=== PATIENT | female | born 1940 | race Caucasian/White ===

== ENCOUNTER 2016-12-28 12:17 | Inpatient (IN) | payer MEDICARE, OTHER ==
[~2016-12-28] VITALS: Ht 165.1 cm; Wt 121.8 kg
[~2016-12-28 12:17] MED LIST: ASPI-664 PO; ATOR40TA21 PO; CARV6.2579 PO; FENO135C3 PO; GLIM4TAB55 PO; OLME1TAB12 PO; SITA1TAB7 PO
[2016-12-28] MEDS ORDERED: SOD CHLORIDE 0.9% 500 ML IV STA (13:06)
[2016-12-28] MEDS ORDERED: ONDANSETRON 4 MG INJ IV STA (13:06)
[2016-12-28] MEDS ORDERED: MECLIZINE 12.5 MG TAB PO ONE (13:30)
[2016-12-28 13:39] LABS: ADD SCAN DIFF NO
[2016-12-28 13:46] LABS: BASOPHILS % 0.2 % (0.0-2.0); EOSINOPHILS % 0.1 % (0.0-7.0); HEMATOCRIT 36.1 % (37.0-47.0); HEMOGLOBIN 11.9 g/dl (12.0-16.0); LYMPHOCYTES # 0.6 10^3/ul (0.8-2.9); LYMPHOCYTES % 4.2 % (15.0-51.0); MEAN PLATELET VOLUME 11.4 fl (7.4-10.4); MONOCYTE # 0.5 10^3/ul (0.3-0.9); MONOCYTES % 3.4 % (0.0-11.0); NEUTROPHIL # 13.5 10^3/ul (1.6-7.5); NEUTROPHILS % 91.4 % (39.0-77.0); PLATELET COUNT 204 10^3/UL (140-415); RED CELL DISTRIBUTION WIDTH 13.2 % (11.5-14.5); WHITE BLOOD COUNT 14.8 10^3/ul (4.8-10.8)
[2016-12-28 13:57] LABS: ALBUMIN 4.2 g/dl (3.3-4.9)
[2016-12-28 13:58] LABS: POTASSIUM 4.5 mmol/L (3.5-5.1)
[2016-12-28 14:00] LABS: ALBUMIN/GLOBULIN RATIO 1.44; BILIRUBIN,INDIRECT 0.7 mg/dl (0-1.1); BILIRUBIN,TOTAL 0.7 mg/dl (0.2-1.3); CREATININE 1.19 mg/dl (0.44-1.00); TOTAL PROTEIN 7.1 g/dl (6.1-8.1)
[2016-12-28 14:01] LABS: CALCIUM 9.6 mg/dl (8.4-10.2)
--- NOTE | 2016-12-28 14:01 | RADRPT ---
PROCEDURE: XR Chest. CLINICAL INDICATION: Chest pain TECHNIQUE: Chest AP portable. COMPARISON: 04/03/2015 FINDINGS: The mediastinal structures are unremarkable. There is calcification of the thoracic aorta (consiste nt with atherosclerosis). There is mild cardiomegaly. There is mild pulmonary venous hypertension. No consolidation is identified. The pleural spaces are unremarkable. There are senescent changes of the axial skeleton. IMPRESSION: Mild cardiomegaly. Mild pulmonary venous hypertension. RPTAT: HGDB .Mario Garrido MD, Date Time Electronically viewed and signed by .Mario Garrido MD, on 12/28/2016 14:01 .B/
[2016-12-28 14:11] LABS: TROPONIN-I 0.026 ng/ml (0.00-0.12)
--- NOTE | 2016-12-28 14:29 | RADRPT ---
PROCEDURE: CT Brain without contrast. CLINICAL INDICATION: Vertigo TECHNIQUE: A multiplanar CT of the brain was performed on a CT scanner utilizing axial imaging fro m the skull base through the vertex without IV contrast. The CTDIvol is and 50.41 mGy and the DLP i s 715.55 mGycm. One or more of the following dose reduction techniques were utilized: Automated ex posure control, adjustment of the mA and/or kV according to patient size, use of iterative reconstru ction technique. COMPARISON: None FINDINGS: No evidence of intracranial hemorrhage or abnormal extra-axial fluid collection. Several low attenua tion foci in the deep white matter most compatible with sequelae of chronic microvascular ischemic i njury. The brain parenchyma is otherwise normal attenuation morphology with preservation of abraham white diff erentiation and age appropriate size of the ventricles and subarachnoid spaces. The posterior fossa contents, brainstem, craniocervical junction, orbits, pituitary axis, paranasal sinuses, mastoid air cells, and calvarium are unremarkable. IMPRESSION: 1. No intracranial hemorrhage or acute intracranial abnormality. 2. Early ischemic injury may be occult to CT imaging and diffusion weighted MRI may be considered as clinically warranted. RPTAT:AAJJ Physician Kristal Date Time Electronically viewed and signed by Physician Kristal on 12/28/2016 14:28 OLINDA/
[2016-12-28] MEDS ORDERED: SOD CHLORIDE 0.9% 1,000 ML IV SCH (15:58)
[2016-12-28] MEDS ORDERED: ONDANSETRON 4 MG INJ IV PRN (16:00)
[2016-12-28] MEDS ORDERED: ACETAMINOPHEN 325 MG TAB PO PRN (16:00)
--- NOTE | 2016-12-28 16:03 | ERA ---
ER Documentation Chief Complaint Date/Time DATE: 12/28/16 TIME: 15:59 Chief Complaint dizziness with n/v starting this morning at 0800 HPI This is a 76-year-old female complains of sudden onset of vertigo this morning. She says that when she turns her head she gets severe spinning of the room that induces nausea vomiting. She has no headache no fever no focal neurological complaints such as numbness or weakness speech change or visual change. No chest pain shortness of breath no abdominal pain. No diarrhea. No history of vertigo in the past. The patient does not have a history of A. fib. She says if she remains still the spinning sensation gets better ROS All systems reviewed and are negative except as per history of present illness. Medications Home Meds Reported Medications Aspirin* (Aspirin* (EC)) 81 Mg Tablet.dr, 81 MG PO DAILY, TAB 04/03/15 Glimepiride* (Amaryl*) 4 Mg Tablet, 4 MG PO DAILY 02/22/12 Sitagliptin Phos-Metformin Hcl (Janumet) 1 Tab Tablet, 50 MG PO BID 02/22/12 Olmesartan/Hydrochlorothiazide (Benicar Hct 40-12.5 Mg Tablet) 1 Udtab Tablet, 1 TAB PO DAILY 02/22/12 Carvedilol* (Carvedilol*) 6.25 Mg Tablet, 6.25 MG PO BID 02/22/12 Fenofibric Acid (Choline) (Trilipix) 135 Mg Capsule.dr, 135 MG PO DAILY 02/22/12 Atorvastatin (Lipitor) 40 Mg Tablet, 40 MG PO DAILY 02/22/12 Allergies Allergies: Coded Allergies: No Known Allergy (Unverified , 12/28/16) PMhx/Soc Medical and Surgical Hx: pt denies Surgical Hx History of Surgery: No Anesthesia Reaction: No Hx Neurological Disorder: No Hx Respiratory Disorders: No Hx Cardiac Disorders: Yes (HTN) Hx Psychiatric Problems: No Hx Miscellaneous Medical Probl: Yes (DJD,OBESITY,HTN,HERNIA REPAIR, CHOLECYSTECTOMY,DYSLIPIDEMIA) Hx Alcohol Use: No Hx Substance Use: No Hx Tobacco Use: No Smoking Status: Never smoker FmHx Family History: No coronary disease Physical Exam Vitals Vital Signs Date Time Temp Pulse Resp B/P Pulse Ox O2 Delivery O2 Flow Rate FiO2 12/28/16 12:25 99.2 114 16 124/66 100 Physical Exam Const: Well-developed, well-nourished Head: Atraumatic, normocephalic Eyes: Normal Conjunctiva, PERRLA, EOMI, normal sclera, no nystagmus ENT: Normal External Ears, Nose and Mouth, moist mucus membranes. Neck: Full range of motion. No meningismus, no lymphadenopathy. Resp: Clear to auscultation bilaterally, no wheezing, rhonchi, rales Cardio: Irregular irregular rhythm heart rate 95-115, no murmurs, S1 S2 present Abd: Soft, non tender x 4, non distended. Normal bowel sounds, no guarding or rebound, no pulsitile abdominal masses or bruits Skin: No petechiae or rashes, no ecchymosis , no maculopapular rash Back: No midline or flank tenderness Ext: No cyanosis, or edema, FROM x 4, normal inspection, neurovascularly intact x 4 Neur: Awake and alert, STR 5/5 x 4, sensation intact x 4, no focal findings, cerebellum intact, upon attempting Hallpike the patient gets severe vertigo and cannot tolerate the maneuver., I do not appreciate nystagmus Psych: Normal Mood and Affect Result Diagram: 12/28/16 1320 12/28/16 1320 Results 24 hrs Laboratory Tests Test 12/28/16 13:20 Alanine Aminotransferase (ALT/SGPT) 22IU/L Albumin 4.2g/dl Albumin/Globulin Ratio 1.44 Alkaline Phosphatase 106IU/L Anion Gap 18 Aspartate Amino Transf (AST/SGOT) 20IU/L Basophils # 0.010^3/ul Basophils % 0.2% Blood Urea Nitrogen 29mg/dl Calcium Level 9.6mg/dl Carbon Dioxide Level 27mmol/L Chloride Level 101mmol/L Creatinine 1.19mg/dl Direct Bilirubin 0.00mg/dl Eosinophils # 0.010^3/ul Eosinophils % 0.1% Globulin 2.90g/dl Glucose Level 199mg/dl Hematocrit 36.1% Hemoglobin 11.9g/dl Indirect Bilirubin 0.7mg/dl Lymphocytes # 0.610^3/ul Lymphocytes % 4.2% Mean Corpuscular Hemoglobin 29.0pg Mean Corpuscular Hemoglobin Concent 33.0g/dl Mean Corpuscular Volume 88.0fl Mean Platelet Volume 11.4fl Monocytes # 0.510^3/ul Monocytes % 3.4% Neutrophils # 13.510^3/ul Neutrophils % 91.4% Nucleated Red Blood Cells # 0.010^3/ul Nucleated Red Blood Cells % 0.0/100WBC Platelet Count 37637^3/UL Potassium Level 4.5mmol/L Red Blood Count 4.1010^6/ul Red Cell Distribution Width 13.2% Sodium Level 141mmol/L Total Bilirubin 0.7mg/dl Total Protein 7.1g/dl Troponin I 0.026ng/ml White Blood Count 14.810^3/ul Current Medications Medications (Trade) Dose Ordered Sig/Rodri Route PRN Reason Start Time Stop Time Status Last Admin Dose Admin Sodium Chloride (NS) 500 ml @ 500 mls/hr Q1H STAT IV 12/28/16 13:06 12/28/16 14:05 DC 12/28/16 13:28 Ondansetron HCl (Zofran Inj) 4 mg ONCE STAT IV 12/28/16 13:06 12/28/16 13:08 DC 12/28/16 13:27 Meclizine HCl (Antivert) 25 mg ONCE ONCE PO 12/28/16 13:30 12/28/16 13:31 DC 12/28/16 13:27 Procedures/MDM PROCEDURE: CT Brain without contrast. CLINICAL INDICATION: Vertigo TECHNIQUE: A multiplanar CT of the brain was performed on a CT scanner utilizing axial imaging from the skull base through the vertex without IV contrast. The CTDIvol is and 50.41 mGy and the DLP is 715.55 mGycm. One or more of the following dose reduction techniques were utilized: Automated exposure control, adjustment of the mA and/or kV according to patient size, use of iterative reconstruction technique. COMPARISON: None FINDINGS: No evidence of intracranial hemorrhage or abnormal extra-axial fluid collection. Several low attenuation foci in the deep white matter most compatible with sequelae of chronic microvascular ischemic injury. The brain parenchyma is otherwise normal attenuation morphology with preservation of abraham white differentiation and age appropriate size of the ventricles and subarachnoid spaces. The posterior fossa contents, brainstem, craniocervical junction, orbits, pituitary axis, paranasal sinuses, mastoid air cells, and calvarium are unremarkable. IMPRESSION: 1. No intracranial hemorrhage or acute intracranial abnormality. 2. Early ischemic injury may be occult to CT imaging and diffusion weighted MRI may be considered as clinically warranted. RPTAT:AAJJ Physician Kristal Date Time Electronically viewed and signed by Physician Kristal on 12/28/2016 14:28 OLINDA/ CC: CHRISS HRAPER DO PROCEDURE: XR Chest. CLINICAL INDICATION: Chest pain TECHNIQUE: Chest AP portable. COMPARISON: 04/03/2015 FINDINGS: The mediastinal structures are unremarkable. There is calcification of the thoracic aorta (consistent with atherosclerosis). There is mild cardiomegaly. There is mild pulmonary venous hypertension. No consolidation is identified. The pleural spaces are unremarkable. There are senescent changes of the axial skeleton. IMPRESSION: Mild cardiomegaly. Mild pulmonary venous hypertension. RPTAT: HGDB .Mario Garrido MD, MD Date Time Electronically viewed and signed by .Mario Garrido MD, MD on 12/28/2016 14:01 .B/ CC: CHRISS HARPER DO EKG: Rate/Rhythm: Atrial fibrillation with rapid ventricular response, heart rate 105, left anterior fascicular block QRS, ST, QT: NORMAL [place], QRS, QT] Impression: Atrial fibrillation with RVR Patient has no evidence of stroke on CT scan nor does have any on physical exam. Will admit the patient for new onset A. fib. Patient is having some vertigo which is likely peripheral in nature will likely undergo MRI Departure Diagnosis: Primary Impression: Atrial fibrillation, new onset Additional Impression: Vertigo Condition: Stable CHRISS HARPER DO Dec 28, 2016 16:03
--- NOTE | 2016-12-28 18:55 | HP ---
Date/Time of Note Date/Time of Note DATE: 12/28/16 TIME: 18:28 Assessment/Plan VTE Prophylaxis VTE Prophylaxis Intervention: heparin Lines/Catheters IV Catheter Type (from Nrs): Saline Lock Assessment/Plan Assessment/Plan 76 yo F who presents with dizziness managed for 1. Acute onset Dizziness * r/o CVA 2. New Afib + Mild RVR 3. HTN: controlled 3. DM2 with fairly good control 5. Leukocytosis L: likely reactive * r/o occult infection 6. Dyslipidemia 7. Acute renal failure r/o CKD 8. Hx of LE DVT PLAN: Admit tele CVA r/o with MRI / Carotids / 2d Echo Cardio consult / ACS r/o / anticoagulation /BB / EVANS i when renal fxn stable UA / Serial labs / LE dopplers PROPHYLAXIS: PPI / Lovenox HPI/ROS Admit Date/Time Admit Date/Time 12/28/16 Hx of Present Illness This is a 76-year-old female complains of sudden onset of vertigo this morning. She says that when she turns her head she gets severe spinning of the room that induces nausea vomiting. She has no headache no fever no focal neurological complaints such as numbness or weakness speech change or visual change. No chest pain shortness of breath no abdominal pain. No diarrhea. No history of vertigo in the past. The patient does not have a history of A. fib. She says if she remains still the spinning sensation gets better ROS 12 point review if systems was done and pertinent findings are as noted. PMH/Family/Social Past Medical History * HTN * OA * HLD * Hx of LE DVT * ckd? * DM 2 * Obesity Past Surgical History * hernia repair * cholecystectomy Family History Significant Family History: no pertinent family hx Social History Alcohol Use: none Smoking Status: Never smoker Drug Use: none Exam/Review of Systems Vital Signs Vitals VS - Last 72 Hours, by Label Date Time Temp Pulse Resp B/P Pulse Ox O2 Delivery O2 Flow Rate FiO2 12/28/16 15:48 98.1 95 24 138/62 97 Room Air 12/28/16 12:25 99.2 114 16 124/66 100 Vital Signs Date Time Temp Pulse Resp B/P Pulse Ox O2 Delivery O2 Flow Rate FiO2 12/28/16 15:48 98.1 95 24 138/62 97 Room Air Exam Constitutional: alert, oriented, No distress Psych: anxiety Head: atraumatic, normocephalic Eyes: PERRL, No icteric ENMT: mucosa pink and moist Neck: supple, No jvd Respiratory: clear to auscultation, diminished breath sounds Cardiovascular: irregular rhythm, No murmurs/extra sounds Gastrointestinal: bowel sounds, non-tender, soft Extremities: No edema Neurological: nl mental status, nl speech, No focal weakness Labs Result Diagram: 12/28/16 1320 12/28/16 1320 Medications Medications Current Medications Sodium Chloride (NS) 1,000 ml @ 80 mls/hr [id number] IV ; Start 12/28/16 at 15:58 ; Stop 12/29/16 at 04:27 Procedures Procedures Laboratory Tests Test 12/28/16 13:20 Alanine Aminotransferase (ALT/SGPT) 22IU/L Albumin 4.2g/dl Albumin/Globulin Ratio 1.44 Alkaline Phosphatase 106IU/L Anion Gap 18 Aspartate Amino Transf (AST/SGOT) 20IU/L Basophils # 0.010^3/ul Basophils % 0.2% Blood Urea Nitrogen 29mg/dl Calcium Level 9.6mg/dl Carbon Dioxide Level 27mmol/L Chloride Level 101mmol/L Creatinine 1.19mg/dl Direct Bilirubin 0.00mg/dl Eosinophils # 0.010^3/ul Eosinophils % 0.1% Globulin 2.90g/dl Glucose Level 199mg/dl Hematocrit 36.1% Hemoglobin 11.9g/dl Indirect Bilirubin 0.7mg/dl Lymphocytes # 0.610^3/ul Lymphocytes % 4.2% Mean Corpuscular Hemoglobin 29.0pg Mean Corpuscular Hemoglobin Concent 33.0g/dl Mean Corpuscular Volume 88.0fl Mean Platelet Volume 11.4fl Monocytes # 0.510^3/ul Monocytes % 3.4% Neutrophils # 13.510^3/ul Neutrophils % 91.4% Nucleated Red Blood Cells # 0.010^3/ul Nucleated Red Blood Cells % 0.0/100WBC Platelet Count 93518^3/UL Potassium Level 4.5mmol/L Red Blood Count 4.1010^6/ul Red Cell Distribution Width 13.2% Sodium Level 141mmol/L Total Bilirubin 0.7mg/dl Total Protein 7.1g/dl Troponin I 0.026ng/ml White Blood Count 14.810^3/ul ER INTERVENTIONS Medications (Trade) Dose Ordered Sig/Rodri Route PRN Reason Start Time Stop Time Status Last Admin Dose Admin Sodium Chloride (NS) 500 ml @ 500 mls/hr Q1H STAT IV 12/28/16 13:06 12/28/16 14:05 DC 12/28/16 13:28 500 MLS/HR Ondansetron HCl (Zofran Inj) 4 mg ONCE STAT IV 12/28/16 13:06 12/28/16 13:08 DC 12/28/16 13:27 4 MG Meclizine HCl 25 mg 25 mg ONCE ONCE PO 12/28/16 13:30 12/28/16 13:31 DC 12/28/16 13:27 25 MG Sodium Chloride (NS) 1,000 ml @ 80 mls/hr [id number] IV 12/28/16 15:58 12/29/16 04:27 Ondansetron HCl (Zofran Inj) 4 mg ER BRIDGE PRN IV NAUSEA AND/OR VOMITING 12/28/16 16:00 12/29/16 15:59 Acetaminophen (Tylenol Tab) 650 mg ER BRIDGE PRN PO MILD PAIN/FEVER 12/28/16 16:00 12/29/16 15:59 PROCEDURE: CT Brain without contrast. CLINICAL INDICATION: Vertigo TECHNIQUE: A multiplanar CT of the brain was performed on a CT scanner utilizing axial imaging from the skull base through the vertex without IV contrast. The CTDIvol is and 50.41 mGy and the DLP is 715.55 mGycm. One or more of the following dose reduction techniques were utilized: Automated exposure control, adjustment of the mA and/or kV according to patient size, use of iterative reconstruction technique. COMPARISON: None FINDINGS: No evidence of intracranial hemorrhage or abnormal extra-axial fluid collection. Several low attenuation foci in the deep white matter most compatible with sequelae of chronic microvascular ischemic injury. The brain parenchyma is otherwise normal attenuation morphology with preservation of abraham white differentiation and age appropriate size of the ventricles and subarachnoid spaces. The posterior fossa contents, brainstem, craniocervical junction, orbits, pituitary axis, paranasal sinuses, mastoid air cells, and calvarium are unremarkable. IMPRESSION: 1. No intracranial hemorrhage or acute intracranial abnormality. 2. Early ischemic injury may be occult to CT imaging and diffusion weighted MRI may be considered as clinically warranted. RPTAT:AAJJ Physician Kristal Date Time Electronically viewed and signed by Physician Kristal on 12/28/2016 14:28 PROCEDURE: XR Chest. CLINICAL INDICATION: Chest pain TECHNIQUE: Chest AP portable. COMPARISON: 04/03/2015 FINDINGS: The mediastinal structures are unremarkable. There is calcification of the thoracic aorta (consistent with atherosclerosis). There is mild cardiomegaly. There is mild pulmonary venous hypertension. No consolidation is identified. The pleural spaces are unremarkable. There are senescent changes of the axial skeleton. IMPRESSION: Mild cardiomegaly. Mild pulmonary venous hypertension. RPTAT: HGDB .Mario Garrido MD, Date Time Electronically viewed and signed by .Mario Garrido MD, MD on 12/28/2016 14:01 EKG: Rate/Rhythm: Atrial fibrillation with rapid ventricular response, heart rate 105, left anterior fascicular block QRS, ST, QT: NORMAL NC, QRS, QT] Impression: Atrial fibrillation with RVR JHOAN BARRETT Dec 28, 2016 18:41
[2016-12-28] MEDS ORDERED: GLUCOSE GEL 15 GRAM TUBE BUCCAL PRN (19:00)
[2016-12-28] MEDS ORDERED: DEXTROSE 50% 50 ML SYRINGE IV PRN ×2 (19:00)
[2016-12-28] MEDS ORDERED: GLUCOSE GEL 15 GRAM TUBE PO PRN ×2 (19:00)
[2016-12-28] MEDS ORDERED: GLUCAGON 1 MG INJ IM PRN (19:00)
--- NOTE | 2016-12-28 19:42 | RADRPT ---
PROCEDURE: US Lower extremity Venous. CLINICAL INDICATION: Pain and swelling TECHNIQUE: Multiple sonographic images of the bilateral lower extremity deep venous system was obt ained utilizing grayscale, color-flow, compressive sonography and doppler imaging with augmentation. The images were reviewed on a PACS workstation. COMPARISON: None. FINDINGS: There is normal compressibility and flow within the bilateral common femoral, deep femoral, superfic ial femoral and popliteal veins. Normal respiratory variation and augmentation is seen. There is normal color flow and compressibility of bilateral posterior tibial and peroneal veins IMPRESSION: No sonographic evidence for bilateral lower extremity deep venous thrombosis. RPTAT: HH .Ochoa Pinto MD, MD Date Time Electronically viewed and signed by .Ochoa Pinto MD, on 12/28/2016 19:42 .W/
[2016-12-28] MEDS: SOD CHLORIDE 0.9% 1,000 ML IV SCH (20:00)
[2016-12-28 20:20] VITALS: TEMP 102.3
[2016-12-28] MEDS: INSULIN ASPART [NOVOLOG] 3 ML PEN SC SCH (21:00)
[2016-12-28 21:18] VITALS: PULSE 92
[2016-12-28 22:14] VITALS: BP 138/58; PULSE 96; RESP 21; Ht 165.1 cm; Wt 121.8 kg
[2016-12-29] VITALS (14 sets, daily range): BP systolic 87–113; BP diastolic 42–60; PULSE 71–87; RESP 18–20
[2016-12-29 00:15] LABS: CK-MB 0.38 ng/ml (0.0-2.4)
[2016-12-29 00:36] LABS: TROPONIN-I 0.173 ng/ml (0.00-0.12)
[2016-12-29] MEDS: PANTOPRAZOLE (EC) 40 MG TAB PO SCH (05:38)
[2016-12-29] MEDS: SOD CHLORIDE 0.9% 1,000 ML IV SCH (08:11)
[2016-12-29 08:34] LABS: ADD SCAN DIFF NO
[2016-12-29 08:39] LABS: BASOPHILS % 0.1 % (0.0-2.0); HEMATOCRIT 31.2 % (37.0-47.0); HEMOGLOBIN 10.3 g/dl (12.0-16.0); LYMPHOCYTES # 1.1 10^3/ul (0.8-2.9); LYMPHOCYTES % 9.2 % (15.0-51.0); MEAN CORPUSCULAR VOLUME 87.9 fl (82.0-101.0); MEAN PLATELET VOLUME 11.4 fl (7.4-10.4); MONOCYTE # 0.5 10^3/ul (0.3-0.9); MONOCYTES % 3.9 % (0.0-11.0); NEUTROPHILS % 86.3 % (39.0-77.0); PLATELET COUNT 178 10^3/UL (140-415); RED BLOOD COUNT 3.55 10^6/ul (4.20-5.40); RED CELL DISTRIBUTION WIDTH 13.5 % (11.5-14.5); WHITE BLOOD COUNT 11.6 10^3/ul (4.8-10.8)
[2016-12-29 08:56] LABS: POTASSIUM 3.7 mmol/L (3.5-5.1)
[2016-12-29 08:58] LABS: CREATININE 1.14 mg/dl (0.44-1.00)
[2016-12-29 08:59] LABS: CALCIUM 8.6 mg/dl (8.4-10.2); MAGNESIUM 1.3 mg/dl (1.7-2.5); PHOSPHORUS 2.3 mg/dl (2.5-4.9)
[2016-12-29 09:00] LABS: CHOL/HDL RATIO 3.8 RATIO
[2016-12-29] MEDS ORDERED: ATORVASTATIN 40 MG TAB PO SCH (09:00)
[2016-12-29 09:08] LABS: CK-MB 0.33 ng/ml (0.0-2.4)
[2016-12-29 09:15] LABS: TROPONIN-I 0.146 ng/ml (0.00-0.12)
[2016-12-29] MEDS: ENOXAPARIN 40 MG/0.4 ML SYG SC SCH (09:21)
[2016-12-29] MEDS: ASPIRIN (EC) 81 MG TAB PO SCH (09:21)
[2016-12-29] MEDS: metFORMIN 500 MG TAB PO SCH ×2 (09:21→17:45)
[2016-12-29] MEDS: LINAGLIPTIN 5 MG TABLET PO SCH (09:22)
[2016-12-29 09:29] LABS: THYROID STIMULATING HORMONE 0.085 MIU/L (0.465-4.680)
[2016-12-29] MEDS: FENOFIBRATE 145 MG TAB PO SCH (09:30)
[2016-12-29] MEDS: INSULIN ASPART [NOVOLOG] 3 ML PEN SC SCH ×4 (10:30→21:43)
--- NOTE | 2016-12-29 11:01 | RADRPT ---
Echocardiogram Report Patient Name: CHIDI FRANCISCO Gender: Female Date: 1940 Study Date: 29-Dec-2016 Excavating Contractor: Jorge eRis [facility] Location: [id number] Ref. Physician: JHOAN BARRETT Quality: Technically Difficult Study Procedures: Transthoracic echocardiogram with complete 2D, M-Mode, and doppler examination. Indications: Atrial Fibrillation RVR. 2D/M Mode Doppler Measurement Value Normal Ranges Measurement Value Normal Ranges LVIDd 2D 5.4 3.5 - 5.6 cm AV Peak Paolo 1.7 m/sec LVIDs 2D 3.1 2.1 - 4.1 cm AV Peak PG 11.6 mmHg LVPWd 2D 1.2 0.6 - 1.1 cm LVOT Peak Paolo 1.3 m/sec IVSd 2D 1.1 0.6 - 1.1 cm LVOT Peak PG 7.3 mmHg AoR Diam 2D 3.0 2.0 - 3.7 cm MV E Peak Paolo 0.7 m/sec EDV 2D 139.3 cm3 MV A Peak Paolo 0.9 m/sec ESV 2D 30.9 cm3 MV E/A 0.8 LA Dimen 2D 3.7 2.3 - 4.0 cm MV Decel Time 140 msec MV Decel [place] 5 MV E/A 0.8 TR Peak Paolo 2.2 m/sec TR Peak PG 18.6 mmHg RVSP 22.0 mmHg Findings Left Ventricle: Normal left ventricular systolic function. Normal left ventricular cavity size. Normal left ventricular wall thickness. Ejection fraction is visually estimated at 65 %. Tissue Doppler/Mitral Doppler indices are consistent with impaired relaxation (Stage I diastolic dysfunction). Right Ventricle: Normal right ventricular size. Normal right ventricular systolic function. Left Atrium: The left atrium is normal in size. Right Atrium: The right atrium is normal in size. Mitral Valve: Mitral valve leaflets appear mildly thickened. Mild mitral annular calcification. Trace mitral regurgitation. Aortic Valve: No hemodynamically significant aortic stenosis by doppler. Aortic cusps appear mildly calcified. Trace to mild aortic valve regurgitation. Tricuspid Valve: Normal appearance of the tricuspid valve. Estimated peak PA systolic pressure 22 mmHg. There is trace tricuspid regurgitation. Pulmonic Valve: Normal pulmonic valve appearance. Pericardium: Normal pericardium with no significant pericardial effusion. Aorta: Normal aortic root. IVC: Normal size and normal respiratory collapse consistent with normal right atrial pressure. Conclusions 1.Normal left ventricular systolic function. Normal left ventricular cavity size. Normal left ventricular wall thickness. Ejection fraction is visually estimated at 65 %. Tissue Doppler/Mitral Doppler indices are consistent with impaired relaxation (Stage I diastolic dysfunction). 2.Mitral valve leaflets appear mildly thickened. Mild mitral annular calcification. Trace mitral regurgitation. 3.No hemodynamically significant aortic stenosis by doppler. Aortic cusps appear mildly calcified. Trace to mild aortic valve regurgitation. 4.Normal appearance of the tricuspid valve. Estimated peak PA systolic pressure 22 mmHg. There is trace tricuspid regurgitation. Electronically Signed By: Danilo Ward 29-Dec-2016 11:00:53 -0800 Patient Name: CHIDI FRANCISCO Study Date: 29-Dec-[id number]
--- NOTE | 2016-12-29 14:55 | PN ---
Date/Time of Note Date/Time of Note DATE: 12/29/16 TIME: 14:47 Assessment/Plan VTE Prophylaxis VTE Prophylaxis Intervention: LMWH Lines/Catheters IV Catheter Type (from Nrsg): Peripheral IV Assessment/Plan Assessment/Plan 1. Vertigo, likely peripheral, follow up with MRI, meclizine prn 2. Atrial fibrillation, paroxysmal, sinus now, follow up with cardiology 3. Fever with leukocytosis, ?source infection, UA, 4. HTN, controlled 5. DM2 with fairly good control 6. Dyslipidemia 7. Acute renal failure r/o CKD 8. Hx of LE DVT, check US Subjective 24 Hr Interval Summary Free Text/Dictation no dizziness today. No chest pain or shortness of breath Exam/Review of Systems Vital Signs Vitals Vital Signs Date Time Temp Pulse Resp B/P Pulse Ox O2 Delivery O2 Flow Rate FiO2 12/29/16 12:17 75 12/29/16 10:20 99.6 12/29/16 08:41 20 102/46 90 12/28/16 22:14 Room Air Intake and Output 12/28/16 12/28/16 12/29/16 15:00 23:00 07:00 Intake Total 600 ml Output Total 400 ml Balance 200 ml Exam Constitutional: alert, obese, oriented, well developed Psych: nl mood/affect, no complaints Head: atraumatic, normocephalic Eyes: EOMI, PERRL, nl conjunctiva, nl lids, nl sclera ENMT: nl external ears & nose, nl lips & teeth, nl nasal mucosa & septum Neck: non-tender, supple Respiratory: clear to auscultation, normal air movement, No congested cough, No crackles/rales, No diminished breath sounds, No intercostal retraction, No labored breathing, No other, No respirations, No tactile fremitus, No wheezing Cardiovascular: nl pulses, regular rate and rhythm, No S3, No S4, No bruits, No diastolic murmur, No edema, No gallop, No irregular rhythm, No jugular venous distention (JVD), No murmurs/extra sounds, No other, No rub, No systolic murmur Gastrointestinal: nl liver, spleen, non-tender, soft, No ascites, No bowel sounds, No distended, No firm, No hepatomegaly, No mass , No other, No rebound or guarding, No splenomegaly, No surgical scars, No tender Musculoskeletal: nl extremities to inspection Extremities: edema Neurological: ARNP II-XII intact, nl mental status, nl speech, nl strength Results Result Diagram: 12/29/16 0659 12/29/16 0659 Results 24 hrs Laboratory Tests Test 12/28/16 21:48 12/28/16 23:30 12/29/16 03:30 12/29/16 06:59 Bedside Glucose 181 166 Creatine Kinase 97 117 Creatine Kinase Index 0.4 0.3 Creatinine Kinase MB (Mass) 0.38 0.33 Troponin I 0.173 *H 0.146 *H Anion Gap 15 Basophils # 0.0 Basophils % 0.1 Blood Urea Nitrogen 21 H Calcium Level 8.6 Carbon Dioxide Level 27 Chloride Level 102 Cholesterol Level 128 Cholesterol/HDL Ratio 3.8 Creatinine 1.14 H Eosinophils # 0.0 Eosinophils % 0.0 Free Thyroxine 1.36 Glucose Level 159 HDL Cholesterol 33 Hematocrit 31.2 L Hemoglobin 10.3 L Hemoglobin A1c 6.5 H LDL Cholesterol, Calculated 72 Lymphocytes # 1.1 Lymphocytes % 9.2 L Magnesium Level 1.3 L Mean Corpuscular Hemoglobin 29.0 Mean Corpuscular Hemoglobin Concent 33.0 Mean Corpuscular Volume 87.9 Mean Platelet Volume 11.4 H Monocytes # 0.5 Monocytes % 3.9 Neutrophils # 10.0 H Neutrophils % 86.3 H Nucleated Red Blood Cells # 0.0 Nucleated Red Blood Cells % 0.0 Phosphorus Level 2.3 L Platelet Count 178 Potassium Level 3.7 Red Blood Count 3.55 L Red Cell Distribution Width 13.5 Sodium Level 140 Thyroid Stimulating Hormone (TSH) 0.085 L Triglycerides Level 117 White Blood Count 11.6 #H Test 12/29/16 08:28 12/29/16 11:46 12/29/16 13:01 Bedside Glucose 151 201 Troponin I 0.134 *H Medications Medications Current Medications Aspirin (Halfprin) 81 mg DAILY PO Last administered on 12/29/16 09:21; Admin Dose 81 MG; Start 12/29/16 at 09:00 Carvedilol (Coreg) 6.25 mg BID PO Last administered on 12/29/16 09:22; Admin Dose 6.25 MG; Start 12/28/16 at 21:00 Fenofibrate (Tricor) 145 mg DAILY PO Last administered on 12/29/16 09:30; Admin Dose 145 MG; Start 12/29/16 at 09:00 Linagliptin (Tradjenta) 5 mg DAILY PO Last administered on 12/29/16 09:22; Admin Dose 5 MG; Start 12/29/16 at 09:00 Pantoprazole (Protonix Tab) 40 mg DAILY@06 PO Last administered on 12/29/16 05 :38; Admin Dose 40 MG; Start 12/29/16 at 06:00 Enoxaparin Sodium (Lovenox) 40 mg DAILY SC Last administered on 12/29/16 09:21 ; Admin Dose 40 MG; Start 12/29/16 at 09:00 Miscellaneous Information 1 ea NOTE XX ; Start 12/28/16 at 19:00 Glucose (Glutose) 15 gm Q15M PRN PO DECREASED GLUCOSE; Start 12/28/16 at 19:00 Glucose (Glutose) 22.5 gm Q15M PRN PO DECREASED GLUCOSE; Start 12/28/16 at 19: 00 Dextrose (D50w Syringe) 25 ml Q15M PRN IV DECREASED GLUCOSE; Start 12/28/16 at 19:00 Dextrose (D50w Syringe) 50 ml Q15M PRN IV DECREASED GLUCOSE; Start 12/28/16 at 19:00 Glucagon (Glucagen) 1 mg Q15M PRN IM DECREASED GLUCOSE; Start 12/28/16 at 19:00 Glucose (Glutose) 15 gm Q15M PRN BUCCAL DECREASED GLUCOSE; Start 12/28/16 at 19 :00 Atorvastatin Calcium (Lipitor) 40 mg QHS PO ; Start 12/29/16 at 21:00 KELSEY CLAUDIO MD Dec 29, 2016 14:55
--- NOTE | 2016-12-29 16:00 | CONS ---
DATE OF ADMISSION: 12/28/2016 DATE OF CONSULTATION: 12/29/2016 TYPE OF CONSULTATION: Cardiology. REFERRING PHYSICIAN: Dr. Rosario REASON FOR EVALUATION: Congestive heart failure exacerbation and positive troponins. HISTORY OF PRESENT ILLNESS: Ms. Hercules is a 76-year-old woman with history of hypertension, dysl ipidemia, history of atrial fibrillation, diabetes, prior history of lower extremity DVT, who comes to the hospital now for evaluation of shortness of breath. The patient does have a diagnosis of atr ial fibrillation, but she is in sinus rhythm now with first-degree AV block and inferior Q-waves. Sh e appears to be in sinus rhythm on telemetry as well. The patient has a significant degree of CHF w ith fluid exacerbation. For now, the plan is continue medical optimization, will continue to diures e the patient and follow expectantly. When the patient is able to lie flat we will see if further ri sk stratification with a stress test might be warranted. PAST MEDICAL HISTORY: 1. History of atrial fibrillation, paroxysmal. 2. History of CVA. 3. History of diabetes. 4. History of lower extremity deep venous thrombosis. 5. History of hypertension. 6. History of heart failure with a known to me ejection fraction. 7. ____ renal failure. ALLERGIES: NO KNOWN DRUG ALLERGIES. SOCIAL HISTORY: The patient does not smoke, does not drink, does not use any drugs. FAMILY HISTORY: Negative for sudden cardiac or premature coronary artery disease. MEDICATIONS: 1. Lipitor 40 mg once a day. 2. Aspirin 81 mg once a day. 3. Tricor 145 mg every other day. 4. Tradjenta 5 mg p.o. once a day. 5. Lovenox 40 mg subq b.i.d. 6. Metformin. 7. Tapazole. 8. Insulin sliding scale. 9. Coreg. REVIEW OF SYSTEMS: CONSTITUTIONAL: No fevers or chills, shortness of breath as described. HEENT: No changes in vision. CARDIAC: Tachycardia. RESPIRATORY: Shortness of breath, acute on chronic. GASTROINTESTINAL: No nausea, vomiting, diarrhea, constipation. GENITOURINARY: No dysuria, hematuria ____. NEUROLOGIC: History of CVA. PSYCHIATRIC: History of depression. PHYSICAL EXAMINATION: VITAL SIGNS: Temperature is 99.6, heart rate 75, blood pressure 102/46. GENERAL: She is an obese woman in no acute distress, alert and oriented x1 to 2, ____ aware of her medical condition. HEAD: Normocephalic, atraumatic. Eyes anicteric. NECK: Supple. JVD is 8 to 9 cm. There is no lymphadenopathy. HEART: Regular, now with soft holosystolic murmur mid chest, PMI ____ . LUNGS: Coarse at the bases. No wheeze. ABDOMEN: Distended, bowel sounds present. GENITOURINARY: Exam is intact. EXTREMITIES: Shows lower extremity edema, 2+ post pitting and nonpitting. LABORATORY DATA: White blood cell count 11.6, hemoglobin 7.3, platelets 178. INR is 1.5. Troponin is positive at 0.134, creatinine is 1.14. ASSESSMENT AND PLAN: 1. Congestive heart failure. The patient was clear of her fluid overload, hence diastolic dysfunct ion with preserved ejection fraction as a diagnosis. Continue to monitor now and follow expectantly . 2. Reported history for atrial fibrillation, paroxysmal. I think it would be reasonable for patient to be on global anticoagulation unless there is a contraindication. For now, we will treat with Lo venox and follow expectantly. 3. History of DVT/PE anticoagulation would be warranted as well. 4. History of congestive heart failure. The patient has significant degree of fluid overload. Con tinue diuresis now. 5. Acute renal failure. Creatinine elevated. Continue to avoid nephrotoxic medications. 6. Coronary artery disease, no chest pain reported. I would like to thank Dr. Rosario for referring this patient for my evaluation. Dictated By: FRANCHESKA YARBROUGH MD ML/NTS Conf#: [id number] DID#: [id number]
--- NOTE | 2016-12-29 17:29 | RADRPT ---
PROCEDURE: MRI Brain without contrast. CLINICAL INDICATION: New onset vertigo TECHNIQUE: Multiplanar MRI of the brain without contrast was performed on a 3.0 T scanner with the following sequences obtained: T1-weighted, T2-weighted/FLAIR, diffusion weighted (with ADC map), GR E. COMPARISON: None available FINDINGS: No acute/recent ischemic infarction or intracranial hemorrhage / blood degradation products are iden tified. No extra-axial fluid collection is seen. There is no mass effect. No midline shift is identified. The ventricles and sulci are mildly enlarged, compatible with volume loss. Minimal areas of increased T2 / FLAIR signal intensity are present in the periventricular - deep whi te matter, nonspecific but likely related to chronic small vessel ischemic changes. Flow voids are identified in the proximal intracranial arteries and dural sinuses suggesting patency . The mastoid air cells and paranasal sinuses are grossly clear. IMPRESSION: 1. No evidence of acute intracranial pathology. 2. Mild volume loss, with minimal chronic small vessel ischemic changes. RPTAT: VV .Antonio Rivera MD, MD Date Time Electronically viewed and signed by .Antonio Rivera MD, MD on 12/29/2016 17:29 .O/
[2016-12-29] MEDS: FUROSEMIDE 20 MG INJ IV SCH (17:50)
[2016-12-29 18:54] LABS: ADD UMIC YES; URINE BILIRUBIN (Dip) NEGATIVE (NEGATIVE); URINE BLOOD (Dip) 2+ (NEGATIVE); URINE COLOR YELLOW (YELLOW); URINE GLUCOSE (Dip) NEGATIVE (NEGATIVE); URINE KETONES (Dip) NEGATIVE (NEGATIVE); URINE LEUKOCYTE ESTERASE (Dip) 1+ (NEGATIVE); URINE NITRITE (Dip) NEGATIVE (NEGATIVE); URINE TOTAL PROTEIN (Dip) NEGATIVE (NEGATIVE); URINE UROBILINOGEN (Dip) 1.0 E.U./dL (0.1-1.0)
[2016-12-29 19:08] LABS: BACTERIA,URINE MODERATE
[2016-12-29] MEDS: ATORVASTATIN 40 MG TAB PO SCH (21:38)
[2016-12-30] VITALS (11 sets, daily range): BP systolic 88–133; BP diastolic 44–63; PULSE 69–77; RESP 18–20
[2016-12-30] MEDS: FUROSEMIDE 20 MG INJ IV SCH ×2 (05:41→17:14)
[2016-12-30] MEDS: PANTOPRAZOLE (EC) 40 MG TAB PO SCH (05:41)
[2016-12-30] MEDS: INSULIN ASPART [NOVOLOG] 3 ML PEN SC SCH ×4 (08:00→21:00)
[2016-12-30] MEDS: LINAGLIPTIN 5 MG TABLET PO SCH (08:45)
[2016-12-30] MEDS: FENOFIBRATE 145 MG TAB PO SCH (08:45)
[2016-12-30] MEDS: ASPIRIN (EC) 81 MG TAB PO SCH (08:46)
[2016-12-30] MEDS: metFORMIN 500 MG TAB PO SCH ×2 (08:46→17:13)
[2016-12-30] MEDS: ENOXAPARIN 40 MG/0.4 ML SYG SC SCH (08:50)
[2016-12-30 10:22] LABS: ADD SCAN DIFF NO
[2016-12-30 10:31] LABS: BASOPHILS % 0.1 % (0.0-2.0); EOSINOPHILS # 0.1 10^3/ul (0.0-0.5); EOSINOPHILS % 0.9 % (0.0-7.0); HEMATOCRIT 31.7 % (37.0-47.0); LYMPHOCYTES # 1.3 10^3/ul (0.8-2.9); LYMPHOCYTES % 15.6 % (15.0-51.0); MEAN CORPUSCULAR HEMOGLOBIN 28.4 pg (29.0-33.0); MEAN CORPUSCULAR HGB CONC 31.5 g/dl (32.0-37.0); MEAN CORPUSCULAR VOLUME 90.1 fl (82.0-101.0); MEAN PLATELET VOLUME 11.1 fl (7.4-10.4); MONOCYTE # 0.4 10^3/ul (0.3-0.9); MONOCYTES % 5.1 % (0.0-11.0); NEUTROPHIL # 6.2 10^3/ul (1.6-7.5); NEUTROPHILS % 77.7 % (39.0-77.0); PLATELET COUNT 161 10^3/UL (140-415); RED BLOOD COUNT 3.52 10^6/ul (4.20-5.40); RED CELL DISTRIBUTION WIDTH 13.9 % (11.5-14.5)
[2016-12-30 10:41] LABS: POTASSIUM 4.3 mmol/L (3.5-5.1)
[2016-12-30 10:44] LABS: CALCIUM 8.7 mg/dl (8.4-10.2); CREATININE 1.46 mg/dl (0.44-1.00)
--- NOTE | 2016-12-30 11:25 | PN ---
Date/Time of Note Date/Time of Note DATE: 12/30/16 TIME: 11:22 Assessment/Plan VTE Prophylaxis VTE Prophylaxis Intervention: heparin Lines/Catheters IV [facility] [place] [facility] Urinary Cath still in place: No Assessment/Plan Problems: (1) Hypertension Status: Acute Comment: Adequately controlled on current medication regimen. Qualifiers: Hypertension type: essential hypertension Qualified Code: I10 - Essential hypertension (2) Paroxysmal atrial fibrillation Status: Chronic Comment: Presently in sinus rhythm. Please see the dictations from our children's service worker (3) Diastolic dysfunction with heart failure Status: Chronic Comment: Stabilized. This would be an appropriate location for beta-blockade as part of the antihypertensive regimen Qualifiers: Heart failure chronicity: acute on chronic Qualified Code: I50.33 - Acute on chronic diastolic heart failure (4) Diabetes mellitus type 2 in obese Status: Chronic Comment: Adequately controlled on the current regimen. (5) Morbid obesity with BMI of 40.0-44.9, adult Status: Chronic Comment: Calorie controlled diet. (6) Hyperlipidemia associated with type 2 diabetes mellitus Status: Chronic Comment: Statin therapy (7) Vestibulitis of ear Status: Acute Comment: Patient's dizziness is settling down with usage of meclizine. Qualifiers: Laterality: unspecified laterality Qualified Code: H83.09 - Vestibulitis of ear, unspecified laterality (8) Acute kidney injury superimposed on chronic kidney disease Status: Acute Comment: Recheck in morning. The meantime treat the UTI (9) UTI (urinary tract infection) Status: Acute Comment: Try to get a culture Qualifiers: Urinary tract infection type: acute cystitis Hematuria presence: without hematuria Qualified Code: N30.00 - Acute cystitis without hematuria Subjective 24 Hr Interval Summary Free Text/Dictation [place] speaking young lady sitting in bed. She indicates she has been up and walking. She reports she still has a dizziness but it has improved. Constitutional: no complaints Respiratory: no complaints (No shortness of breath) Cardiovascular: no complaints (No chest pain or palpitation) Exam/Review of Systems Vital Signs Vitals Vital Signs Date Time Temp Pulse Resp B/P Pulse Ox O2 Delivery O2 Flow Rate FiO2 12/30/16 08:55 98.1 76 20 131/58 97 12/30/16 08:08 Nasal Cannula 2.0 Intake and Output 12/29/16 12/29/1617 15:00 23:00 07:00 Intake Total 850 ml 550 ml Output Total 1200 ml 1300 ml Balance -350 ml -750 ml Exam Constitutional: alert, oriented Neck: non-tender, supple Respiratory: clear to auscultation, normal air movement Cardiovascular: nl pulses, regular rate and rhythm (Currently in a regular rhythm) Gastrointestinal: nl liver, spleen, non-tender, soft Neurological: DEHYDROGENATION CONVERTER HELPER II-XII intact, nl mental status, nl speech, nl strength, other (No nystagmus positive [place]-Hallpike) Skin: other (Monilial in the folds of the skin in the groin) Results Result Diagram: 12/30/16 0955 12/30/16 0955 Results 24 hrs Laboratory Tests Test 12/29/16 11:46 12/29/16 13:01 12/29/16 17:36 12/29/16 18:30 Bedside Glucose 201 179 Troponin I 0.134 *H Urine Bacteria MODERATE Urine Bilirubin NEGATIVE Urine Clarity SLIGHTLY CLOUDY Urine Color YELLOW Urine Epithelial Cells FEW Urine Glucose NEGATIVE Urine Hemoglobin 2+ H Urine Ketones NEGATIVE Urine Leukocyte Esterase 1+ H Urine Microscopic RBC 5-10 Urine Microscopic WBC 10-25 Urine Nitrite NEGATIVE Urine Specific [place] >=1.030 H Urine Total Protein NEGATIVE Urine Urobilinogen 1.0 E.U./dL Urine pH 5.5 Test 12/29/16 21:05 12/30/16 02:24 12/30/16 07:21 12/30/16 09:55 Bedside Glucose 206 111 102 Anion Gap 13 Basophils # 0.0 Basophils % 0.1 Blood Urea Nitrogen 27 H Calcium Level 8.7 Carbon Dioxide Level 28 Chloride Level 102 Creatinine 1.46 H Eosinophils # 0.1 Eosinophils % 0.9 Glucose Level 173 Hematocrit 31.7 L Hemoglobin 10.0 L Lymphocytes # 1.3 Lymphocytes % 15.6 Mean Corpuscular Hemoglobin 28.4 L Mean Corpuscular Hemoglobin Concent 31.5 L Mean Corpuscular Volume 90.1 Mean Platelet Volume 11.1 H Monocytes # 0.4 Monocytes % 5.1 Neutrophils # 6.2 Neutrophils % 77.7 H Nucleated Red Blood Cells # 0.0 Nucleated Red Blood Cells % 0.0 Platelet Count 161 Potassium Level 4.3 Red Blood Count 3.52 L Red Cell Distribution Width 13.9 Sodium Level 139 White Blood Count 8.0 # Medications Medications Current Medications Aspirin (Halfprin) 81 mg DAILY PO Last administered on 12/30/16 08:46; Admin Dose 81 MG; Start 12/29/16 at 09:00 Carvedilol (Coreg) 6.25 mg BID PO Last administered on 12/29/16 21:38; Admin Dose 6.25 MG; Start 12/28/16 at 21:00 Fenofibrate (Tricor) 145 mg DAILY PO Last administered on 12/30/16 08:45; Admin Dose 145 MG; Start 12/29/16 at 09:00 Linagliptin (Tradjenta) 5 mg DAILY PO Last administered on 12/30/16 08:45; Admin Dose 5 MG; Start 12/29/16 at 09:00 Pantoprazole (Protonix Tab) 40 mg DAILY@06 PO Last administered on 12/30/16 05 :41; Admin Dose 40 MG; Start 12/29/16 at 06:00 Enoxaparin Sodium (Lovenox) 40 mg DAILY SC Last administered on 12/30/16 08:50 ; Admin Dose 40 MG; Start 12/29/16 at 09:00 Miscellaneous Information 1 ea NOTE XX ; Start 12/28/16 at 19:00 Glucose (Glutose) 15 gm Q15M PRN PO DECREASED GLUCOSE; Start 12/28/16 at 19:00 Glucose (Glutose) 22.5 gm Q15M PRN PO DECREASED GLUCOSE; Start 12/28/16 at 19: 00 Dextrose (D50w Syringe) 25 ml Q15M PRN IV DECREASED GLUCOSE; Start 12/28/16 at 19:00 Dextrose (D50w Syringe) 50 ml Q15M PRN IV DECREASED GLUCOSE; Start 12/28/16 at 19:00 Glucagon (Glucagen) 1 mg Q15M PRN IM DECREASED GLUCOSE; Start 12/28/16 at 19:00 Glucose (Glutose) 15 gm Q15M PRN BUCCAL DECREASED GLUCOSE; Start 12/28/16 at 19 :00 Atorvastatin Calcium (Lipitor) 40 mg QHS PO Last administered on 12/29/16 21: 38; Admin Dose 40 MG; Start 12/29/16 at 21:00 JORGE ALCAZAR MD Dec 30, 2016 11:25
[2016-12-30] MEDS ORDERED: FLUCONAZOLE 200 MG TAB PO ONE (11:30)
[2016-12-30] MEDS ORDERED: FOSFOMYCIN 3 GM PACKET PO ONE (11:30)
--- NOTE | 2016-12-30 16:32 | CONS ---
Date/Time of Note Date/Time of Note DATE: 12/30/16 TIME: 16:29 Assessment/Plan Assessment/Plan Additional Assessment/Plan 1. Congestive heart failure: diastolic dysfunction with preserved ejection fraction as a diagnosis. Continue to monitor now and follow expectantly. Stable - but borderline Bp, con't gentler diuresis. 2. Reported history for atrial fibrillation, paroxysmal. I think it would be reasonable for patient to be on global anticoagulation unless there is a contraindication. For now, we will treat with Lovenox and follow expectantly. 3. History of DVT/PE anticoagulation would be warranted as well. 4. History of congestive heart failure. The patient has significant degree of fluid overload. Continue diuresis now. 5. Acute renal failure. Creatinine elevated. Continue to avoid nephrotoxic medications. Cr stable. 6. Coronary artery disease, no chest pain reported. No CP now. Consultation Date/Type/Reason Admit Date/Time Dec 28, 2016 at 15:59 Initial Consult Date 24 HR Interval Summary Free Text/Dictation NO acute change - still with fluids overload. Con't gentle diuresis. ROS: No fever, no chills, no nausea, no vomiting, no diarrhea/constipation No recent weight changes No chest pain, no PND, no orthopnea No dizziness, blurred vision No thirst, no heat or cold intolerance (occasional dizziness, but not now) Exam/Review of Systems Vital Signs Vitals Vital Signs Date Time Temp Pulse Resp B/P Pulse Ox O2 Delivery O2 Flow Rate FiO2 12/30/16 16:19 69 12/30/16 15:52 98.3 19 88/44 100 12/30/16 08:08 Nasal Cannula 2.0 Intake and Output 12/29/16 12/29/16 12/30/16 15:00 23:00 07:00 Intake Total 850 ml 550 ml Output Total 1200 ml 1300 ml Balance -350 ml -750 ml Exam General: WN/WD/NAD, AOx 3 HEENT: Unicetric/atraumatic/EOMI (follow commands) NECK: JVD elevated 8 cm , no thyromegaly Lymph: no lymphadenopathy HEART: regular with no S3, II/ systolic murmur at apex LUNGS: Coarse sounds ABD: soft, NT, ND, +BS : Intact Neuro: non focal SKIN: chronic changes EXT: 2 + edema Results Result Diagram: 12/30/16 0955 12/30/16 0955 Results 24 hrs Laboratory Tests Test 12/29/16 17:36 12/29/16 18:30 12/29/16 21:05 12/30/16 02:24 Bedside Glucose 179 206 111 Urine Bacteria MODERATE Urine Bilirubin NEGATIVE Urine Clarity SLIGHTLY CLOUDY Urine Color YELLOW Urine Epithelial Cells FEW Urine Glucose NEGATIVE Urine Hemoglobin 2+ H Urine Ketones NEGATIVE Urine Leukocyte Esterase 1+ H Urine Microscopic RBC 5-10 Urine Microscopic WBC 10-25 Urine Nitrite NEGATIVE Urine Specific [place] >=1.030 H Urine Total Protein NEGATIVE Urine Urobilinogen 1.0 E.U./dL Urine pH 5.5 Test 12/30/16 07:21 12/30/16 09:55 12/30/16 11:46 Bedside Glucose 102 201 Anion Gap 13 Basophils # 0.0 Basophils % 0.1 Blood Urea Nitrogen 27 H Calcium Level 8.7 Carbon Dioxide Level 28 Chloride Level 102 Creatinine 1.46 H Eosinophils # 0.1 Eosinophils % 0.9 Glucose Level 173 Hematocrit 31.7 L Hemoglobin 10.0 L Lymphocytes # 1.3 Lymphocytes % 15.6 Mean Corpuscular Hemoglobin 28.4 L Mean Corpuscular Hemoglobin Concent 31.5 L Mean Corpuscular Volume 90.1 Mean Platelet Volume 11.1 H Monocytes # 0.4 Monocytes % 5.1 Neutrophils # 6.2 Neutrophils % 77.7 H Nucleated Red Blood Cells # 0.0 Nucleated Red Blood Cells % 0.0 Platelet Count 161 Potassium Level 4.3 Red Blood Count 3.52 L Red Cell Distribution Width 13.9 Sodium Level 139 White Blood Count 8.0 # Medications Medications Current Medications Aspirin (Halfprin) 81 mg DAILY PO Last administered on 12/30/16 08:46; Admin Dose 81 MG; Start 12/29/16 at 09:00 Carvedilol (Coreg) 6.25 mg BID PO Last administered on 12/29/16 21:38; Admin Dose 6.25 MG; Start 12/28/16 at 21:00 Fenofibrate (Tricor) 145 mg DAILY PO Last administered on 12/30/16 08:45; Admin Dose 145 MG; Start 12/29/16 at 09:00 Linagliptin (Tradjenta) 5 mg DAILY PO Last administered on 12/30/16 08:45; Admin Dose 5 MG; Start 12/29/16 at 09:00 Pantoprazole (Protonix Tab) 40 mg DAILY@06 PO Last administered on 12/30/16 05 :41; Admin Dose 40 MG; Start 12/29/16 at 06:00 Enoxaparin Sodium (Lovenox) 40 mg DAILY SC Last administered on 12/30/16 08:50 ; Admin Dose 40 MG; Start 12/29/16 at 09:00 Miscellaneous Information 1 ea NOTE XX ; Start 12/28/16 at 19:00 Glucose (Glutose) 15 gm Q15M PRN PO DECREASED GLUCOSE; Start 12/28/16 at 19:00 Glucose (Glutose) 22.5 gm Q15M PRN PO DECREASED GLUCOSE; Start 12/28/16 at 19: 00 Dextrose (D50w Syringe) 25 ml Q15M PRN IV DECREASED GLUCOSE; Start 12/28/16 at 19:00 Dextrose (D50w Syringe) 50 ml Q15M PRN IV DECREASED GLUCOSE; Start 12/28/16 at 19:00 Glucagon (Glucagen) 1 mg Q15M PRN IM DECREASED GLUCOSE; Start 12/28/16 at 19:00 Glucose (Glutose) 15 gm Q15M PRN BUCCAL DECREASED GLUCOSE; Start 12/28/16 at 19 :00 Atorvastatin Calcium (Lipitor) 40 mg QHS PO Last administered on 12/29/16 21: 38; Admin Dose 40 MG; Start 12/29/16 at 21:00 FRANCHESKA YARBROUGH MD Dec 30, 2016 16:32
[2016-12-30] MEDS: ATORVASTATIN 40 MG TAB PO SCH (20:54)
[2016-12-31] VITALS (13 sets, daily range): BP systolic 115–149; BP diastolic 45–65; PULSE 64–89; RESP 17
[2016-12-31] MEDS: PANTOPRAZOLE (EC) 40 MG TAB PO SCH (06:09)
[2016-12-31] MEDS: FUROSEMIDE 20 MG INJ IV SCH ×2 (06:10→17:30)
[2016-12-31] MEDS: INSULIN ASPART [NOVOLOG] 3 ML PEN SC SCH ×4 (07:54→20:52)
[2016-12-31] MEDS: LINAGLIPTIN 5 MG TABLET PO SCH (08:59)
[2016-12-31] MEDS: metFORMIN 500 MG TAB PO SCH ×2 (08:59→17:30)
[2016-12-31] MEDS: FENOFIBRATE 145 MG TAB PO SCH (08:59)
[2016-12-31] MEDS: ASPIRIN (EC) 81 MG TAB PO SCH (08:59)
[2016-12-31] MEDS: ENOXAPARIN 40 MG/0.4 ML SYG SC SCH (09:01)
[2016-12-31 10:55] LABS: ADD SCAN DIFF NO
[2016-12-31 11:03] LABS: BASOPHILS % 0.2 % (0.0-2.0); EOSINOPHILS # 0.2 10^3/ul (0.0-0.5); EOSINOPHILS % 2.8 % (0.0-7.0); HEMATOCRIT 31.3 % (37.0-47.0); HEMOGLOBIN 10.1 g/dl (12.0-16.0); LYMPHOCYTES # 1.3 10^3/ul (0.8-2.9); LYMPHOCYTES % 22.2 % (15.0-51.0); MEAN CORPUSCULAR HEMOGLOBIN 28.9 pg (29.0-33.0); MEAN CORPUSCULAR HGB CONC 32.3 g/dl (32.0-37.0); MEAN CORPUSCULAR VOLUME 89.7 fl (82.0-101.0); MEAN PLATELET VOLUME 11.3 fl (7.4-10.4); MONOCYTE # 0.4 10^3/ul (0.3-0.9); NEUTROPHILS % 67.1 % (39.0-77.0); PLATELET COUNT 177 10^3/UL (140-415); RED BLOOD COUNT 3.49 10^6/ul (4.20-5.40); RED CELL DISTRIBUTION WIDTH 13.7 % (11.5-14.5)
[2016-12-31 11:29] LABS: CREATININE 1.43 mg/dl (0.44-1.00)
[2016-12-31 11:30] LABS: CALCIUM 8.9 mg/dl (8.4-10.2)
[2016-12-31] MEDS ORDERED: VANCOMYCIN IV PER PHARMACY XX SCH (12:30)
[2016-12-31] MEDS ORDERED: FOSFOMYCIN 3 GM PACKET PO ONE (12:30)
--- NOTE | 2016-12-31 12:42 | PN ---
Date/Time of Note Date/Time of Note DATE: 12/31/16 TIME: 12:38 Assessment/Plan VTE Prophylaxis VTE Prophylaxis Intervention: LMWH Lines/Catheters IV Catheter Type (from [facility]): [facility] Urinary Cath still in place: No Assessment/Plan Problems: (1) Acute kidney injury superimposed on chronic kidney disease Status: Acute Comment: Followed carefully. (2) UTI (urinary tract infection) Status: Acute Comment: Microbiology has not posted anything yet. I called him the indicated there were 2 gram-negative rods and they asked whether or not we wish to have this worked up. I have asked him to go ahead and complete the evaluation; I will go ahead and treat Qualifiers: Urinary tract infection type: acute cystitis Hematuria presence: without hematuria Qualified Code: N30.00 - Acute cystitis without hematuria (3) Vestibulitis of ear Status: Acute Comment: Resolving nicely Qualifiers: Laterality: unspecified laterality Qualified Code: H83.09 - Vestibulitis of ear, unspecified laterality (4) Hyperlipidemia associated with type 2 diabetes mellitus Status: Chronic Comment: On treatment (5) Morbid obesity with BMI of 40.0-44.9, adult Status: Chronic Comment: Counseled through family (6) Diabetes mellitus type 2 in obese Status: Chronic Comment: Good control (7) Diastolic dysfunction with heart failure Status: Chronic Comment: Well-controlled on current regimen Qualifiers: Heart failure chronicity: acute on chronic Qualified Code: I50.33 - Acute on chronic diastolic heart failure (8) Paroxysmal atrial fibrillation Status: Chronic Comment: Would actually be an appropriate candidate for anticoagulation with a novel oral anticoagulant drugs versus Coumadin Subjective 24 Hr Interval Summary Free Text/Dictation Patient is family is present and translating. Patient complains of left leg pain Constitutional: no complaints (No fever chills or sweats) Respiratory: no complaints Cardiovascular: no complaints Gastrointestinal: no complaints Exam/Review of Systems Vital Signs Vitals Vital Signs Date Time Temp Pulse Resp B/P Pulse Ox O2 Delivery O2 Flow Rate FiO2 12/31/16 08:23 69 12/31/16 04:27 98.0 149/45 98 Nasal Cannula 2.0 12/30/16 15:52 19 Intake and Output 12/30/16 12/30/16 12/31/16 15:00 23:00 07:00 Intake Total 750 ml 150 ml Output Total 650 ml 1000 ml Balance 100 ml -850 ml Exam Constitutional: alert, oriented Respiratory: clear to auscultation, normal air movement Cardiovascular: nl pulses, regular rate and rhythm Gastrointestinal: nl liver, spleen, non-tender, soft Results Result Diagram: 12/31/16 1010 12/31/16 1010 Results 24 hrs Laboratory Tests Test 12/30/16 15:30 12/30/16 16:56 12/30/16 22:08 12/31/16 07:48 Troponin I 0.058 Bedside Glucose 147 98 110 Test 12/31/16 10:10 12/31/16 11:50 Anion Gap 17 H Basophils # 0.0 Basophils % 0.2 Blood Urea Nitrogen 27 H Calcium Level 8.9 Carbon Dioxide Level 30 Chloride Level 99 Creatinine 1.43 H Eosinophils # 0.2 Eosinophils % 2.8 Glucose Level 168 Hematocrit 31.3 L Hemoglobin 10.1 L Lymphocytes # 1.3 Lymphocytes % 22.2 Mean Corpuscular Hemoglobin 28.9 L Mean Corpuscular Hemoglobin Concent 32.3 Mean Corpuscular Volume 89.7 Mean Platelet Volume 11.3 H Monocytes # 0.4 Monocytes % 7.0 Neutrophils # 4.0 Neutrophils % 67.1 Nucleated Red Blood Cells # 0.0 Nucleated Red Blood Cells % 0.0 Platelet Count 177 Potassium Level 4.0 Red Blood Count 3.49 L Red Cell Distribution Width 13.7 Sodium Level 142 White Blood Count 6.0 # Bedside Glucose 190 Medications Medications Current Medications Aspirin (Halfprin) 81 mg DAILY PO Last administered on 12/31/16 08:59; Admin Dose 81 MG; Start 12/29/16 at 09:00 Carvedilol (Coreg) 6.25 mg BID PO Last administered on 12/31/16 09:00; Admin Dose 6.25 MG; Start 12/28/16 at 21:00 Fenofibrate (Tricor) 145 mg DAILY PO Last administered on 12/31/16 08:59; Admin Dose 145 MG; Start 12/29/16 at 09:00 Linagliptin (Tradjenta) 5 mg DAILY PO Last administered on 12/31/16 08:59; Admin Dose 5 MG; Start 12/29/16 at 09:00 Pantoprazole (Protonix Tab) 40 mg DAILY@06 PO Last administered on 12/31/16 06 :09; Admin Dose 40 MG; Start 12/29/16 at 06:00 Enoxaparin Sodium (Lovenox) 40 mg DAILY SC Last administered on 12/31/16 09:01 ; Admin Dose 40 MG; Start 12/29/16 at 09:00 Miscellaneous Information 1 ea NOTE XX ; Start 12/28/16 at 19:00 Glucose (Glutose) 15 gm Q15M PRN PO DECREASED GLUCOSE; Start 12/28/16 at 19:00 Glucose (Glutose) 22.5 gm Q15M PRN PO DECREASED GLUCOSE; Start 12/28/16 at 19: 00 Dextrose (D50w Syringe) 25 ml Q15M PRN IV DECREASED GLUCOSE; Start 12/28/16 at 19:00 Dextrose (D50w Syringe) 50 ml Q15M PRN IV DECREASED GLUCOSE; Start 12/28/16 at 19:00 Glucagon (Glucagen) 1 mg Q15M PRN IM DECREASED GLUCOSE; Start 12/28/16 at 19:00 Glucose (Glutose) 15 gm Q15M PRN BUCCAL DECREASED GLUCOSE; Start 12/28/16 at 19 :00 Atorvastatin Calcium (Lipitor) 40 mg QHS PO Last administered on 12/30/16 20: 54; Admin Dose 40 MG; Start 12/29/16 at 21:00 JORGE ALCAZAR MD Dec 31, 2016 12:42
[2016-12-31] MEDS ORDERED: VANCOMYCIN 2 GM in SOD CHLORIDE 0.9% 500 ML IVPB SCH (14:30)
--- NOTE | 2016-12-31 15:00 | RADRPT ---
PROCEDURE: Ultrasound of the left lower extremity venous system. CLINICAL INDICATION: Left leg pain and swelling, deep venous thrombosis TECHNIQUE: Dow scale with and without compression, color doppler, spectral doppler of the venous system of the left lower extremity was performed. Venous augmentation maneuvers were utilized. COMPARISON: Lower extremity duplex 12/28/2016 FINDINGS: Common femoral vein: Patent. Superficial femoral vein: Patent. Popliteal vein: Patent. Calf veins: Partially visualized posterior tibial veins are patent. Peroneal veins are not visua lized. No soft tissue abnormalities are identified. IMPRESSION: No evidence of a deep vein thrombosis within the left lower extremity. RPTAT: AADD .Ruben Fontana MD, MD Date Time Electronically viewed and signed by .Ruben Fontana MD, on 12/31/2016 14:59 .B/
--- NOTE | 2016-12-31 16:39 | CONS ---
Date/Time of Note Date/Time of Note DATE: 12/31/16 TIME: 16:38 Assessment/Plan Assessment/Plan Additional Assessment/Plan 1. Congestive heart failure: diastolic dysfunction with preserved ejection fraction as a diagnosis. Continue to monitor now and follow expectantly. Stable - but borderline Bp, con't gentler diuresis. BETTER NOW. 2. Reported history for atrial fibrillation, paroxysmal. I think it would be reasonable for patient to be on global anticoagulation unless there is a contraindication. For now, we will treat with Lovenox and follow expectantly. 3. History of DVT/PE anticoagulation would be warranted as well. 4. History of congestive heart failure. The patient has significant degree of fluid overload. Continue diuresis now. 5. Acute renal failure. Creatinine elevated. Continue to avoid nephrotoxic medications. Cr stable. 6. Coronary artery disease, no chest pain reported. No CP now. NO INTERVENTION PLANNED. Consultation Date/Type/Reason Admit Date/Time Dec 30, 2016 at 11:17 24 HR Interval Summary Free Text/Dictation NO acute change - BP stable - good urine output. .ROS Exam/Review of Systems Vital Signs Vitals Vital Signs Date Time Temp Pulse Resp B/P Pulse Ox O2 Delivery O2 Flow Rate FiO2 12/31/16 16:20 64 12/31/16 08:00 Nasal Cannula 2.0 12/31/16 04:27 98.0 149/45 98 12/30/16 15:52 19 Intake and Output 12/30/16 12/30/16 12/31/16 15:00 23:00 07:00 Intake Total 750 ml 150 ml Output Total 650 ml 1000 ml Balance 100 ml -850 ml Exam General: WN/WD/NAD, AOx 2-3 HEENT: Unicetric/atraumatic/EOMI (follow commands) NECK: JVD elevated, no thyromegaly Lymph: no lymphadenopathy HEART: regular with no S3, II/ systolic murmur at apex LUNGS: Coarse sounds ABD: soft, NT, ND, +BS : Intact Neuro: non focal SKIN: chronic changes EXT: + edema Results Result Diagram: 12/31/16 1010 12/31/16 1010 Results 24 hrs Laboratory Tests Test 12/30/16 16:56 12/30/16 22:08 12/31/16 07:48 12/31/16 10:10 Bedside Glucose 147 98 110 Anion Gap 17 H Basophils # 0.0 Basophils % 0.2 Blood Urea Nitrogen 27 H Calcium Level 8.9 Carbon Dioxide Level 30 Chloride Level 99 Creatinine 1.43 H Eosinophils # 0.2 Eosinophils % 2.8 Glucose Level 168 Hematocrit 31.3 L Hemoglobin 10.1 L Lymphocytes # 1.3 Lymphocytes % 22.2 Mean Corpuscular Hemoglobin 28.9 L Mean Corpuscular Hemoglobin Concent 32.3 Mean Corpuscular Volume 89.7 Mean Platelet Volume 11.3 H Monocytes # 0.4 Monocytes % 7.0 Neutrophils # 4.0 Neutrophils % 67.1 Nucleated Red Blood Cells # 0.0 Nucleated Red Blood Cells % 0.0 Platelet Count 177 Potassium Level 4.0 Red Blood Count 3.49 L Red Cell Distribution Width 13.7 Sodium Level 142 White Blood Count 6.0 # Test 12/31/16 11:50 Bedside Glucose 190 Medications Medications Current Medications Aspirin (Halfprin) 81 mg DAILY PO Last administered on 12/31/16 08:59; Admin Dose 81 MG; Start 12/29/16 at 09:00 Carvedilol (Coreg) 6.25 mg BID PO Last administered on 12/31/16 09:00; Admin Dose 6.25 MG; Start 12/28/16 at 21:00 Fenofibrate (Tricor) 145 mg DAILY PO Last administered on 12/31/16 08:59; Admin Dose 145 MG; Start 12/29/16 at 09:00 Linagliptin (Tradjenta) 5 mg DAILY PO Last administered on 12/31/16 08:59; Admin Dose 5 MG; Start 12/29/16 at 09:00 Pantoprazole (Protonix Tab) 40 mg DAILY@06 PO Last administered on 12/31/16 06 :09; Admin Dose 40 MG; Start 12/29/16 at 06:00 Enoxaparin Sodium (Lovenox) 40 mg DAILY SC Last administered on 12/31/16 09:01 ; Admin Dose 40 MG; Start 12/29/16 at 09:00 Miscellaneous Information 1 ea NOTE XX ; Start 12/28/16 at 19:00 Glucose (Glutose) 15 gm Q15M PRN PO DECREASED GLUCOSE; Start 12/28/16 at 19:00 Glucose (Glutose) 22.5 gm Q15M PRN PO DECREASED GLUCOSE; Start 12/28/16 at 19: 00 Dextrose (D50w Syringe) 25 ml Q15M PRN IV DECREASED GLUCOSE; Start 12/28/16 at 19:00 Dextrose (D50w Syringe) 50 ml Q15M PRN IV DECREASED GLUCOSE; Start 12/28/16 at 19:00 Glucagon (Glucagen) 1 mg Q15M PRN IM DECREASED GLUCOSE; Start 12/28/16 at 19:00 Glucose (Glutose) 15 gm Q15M PRN BUCCAL DECREASED GLUCOSE; Start 12/28/16 at 19 :00 Atorvastatin Calcium 40 mg 40 mg QHS PO Last administered on 12/30/16 20:54; Admin Dose 40 MG; Start 12/29/16 at 21:00 Vancomycin HCl 2 gm/Sodium Chloride 500 ml @ 125 mls/hr NOW IVPB Last administered on 12/31/16 14:34; Admin Dose 125 MLS/HR; Start 12/31/16 at 14:30 ; Stop 12/31/16 at 18:29 Vancomycin HCl/ Sodium Chloride (Vancocin/NS) 250 ml @ 83.333 mls/ hr Q24H IVPB ; Start 01/01/17 at 15:00 FRANCHESKA YARBROUGH MD Dec 31, 2016 16:39
[2016-12-31] MEDS: ATORVASTATIN 40 MG TAB PO SCH (20:51)
[2016-12-31] MEDS ORDERED: VANCOMYCIN 1.5 GM in SOD CHLORIDE 0.9% 250 ML IVPB SCH (23:00)
[2017-01-01] VITALS (9 sets, daily range): BP systolic 98–141; BP diastolic 50–65; PULSE 61–69; RESP 17–20
[2017-01-01] MEDS: PANTOPRAZOLE (EC) 40 MG TAB PO SCH (06:23)
[2017-01-01] MEDS: FUROSEMIDE 20 MG INJ IV SCH ×2 (06:26→17:31)
[2017-01-01 07:23] LABS: POTASSIUM 3.9 mmol/L (3.5-5.1)
[2017-01-01 07:26] LABS: CREATININE 1.28 mg/dl (0.44-1.00)
[2017-01-01 07:27] LABS: CALCIUM 8.8 mg/dl (8.4-10.2)
[2017-01-01] MEDS: INSULIN ASPART [NOVOLOG] 3 ML PEN SC SCH ×4 (07:32→21:00)
--- NOTE | 2017-01-01 08:53 | CONS ---
Date/Time of Note Date/Time of Note DATE: 01/01/17 TIME: 08:51 Assessment/Plan Assessment/Plan Additional Assessment/Plan 1. Congestive heart failure: diastolic dysfunction with preserved ejection fraction as a diagnosis. Continue to monitor now and follow expectantly. Stable - but borderline Bp, con't gentler diuresis. BETTER NOW. Good urine output. 2. Reported history for atrial fibrillation, paroxysmal. I think it would be reasonable for patient to be on global anticoagulation unless there is a contraindication. For now, we will treat with Lovenox and follow expectantly.SINUS NOw. 3. History of DVT/PE anticoagulation would be warranted as well. 4. History of congestive heart failure. The patient has significant degree of fluid overload. Continue diuresis now. 5. Acute renal failure. Creatinine elevated. Continue to avoid nephrotoxic medications. Cr stable at 1.4 - responded well to diuresis. 6. Coronary artery disease, no chest pain reported. No CP now. NO INTERVENTION PLANNED. Consultation Date/Type/Reason Admit Date/Time Dec 30, 2016 at 11:17 24 HR Interval Summary Free Text/Dictation NO acute change - good urine output - con't to monitor. No CP now. ROS: No fever, no chills, no nausea, no vomiting, no diarrhea/constipation No recent weight changes No chest pain, no PND, no orthopnea No dizziness, blurred vision No thirst, no heat or cold intolerance Exam/Review of Systems Vital Signs Vitals Vital Signs Date Time Temp Pulse Resp B/P Pulse Ox O2 Delivery O2 Flow Rate FiO2 01/01/17 08:02 97.8 67 18 107/55 96 12/31/16 20:50 Nasal Cannula 2.0 Intake and Output 12/31/16 12/31/16 01/01/17 15:00 23:00 07:00 Intake Total 1100 ml Output Total 750 ml Balance 350 ml Exam General: WN/WD/NAD, AOx 2-3 HEENT: Unicetric/atraumatic/EOMI (follows commands) NECK: JVD elevated, no thyromegaly Lymph: no lymphadenopathy HEART: regular with no S3, II/ systolic murmur at apex LUNGS: Coarse sounds ABD: soft, NT, ND, +BS : Intact Neuro: non focal SKIN: chronic changes EXT: 1+ edema Results Result Diagram: 12/31/16 1010 01/01/17 0626 Results 24 hrs Laboratory Tests Test 12/31/16 10:10 12/31/16 11:50 12/31/16 17:24 12/31/16 20:50 Anion Gap 17 H Basophils # 0.0 Basophils % 0.2 Blood Urea Nitrogen 27 H Calcium Level 8.9 Carbon Dioxide Level 30 Chloride Level 99 Creatinine 1.43 H Eosinophils # 0.2 Eosinophils % 2.8 Glucose Level 168 Hematocrit 31.3 L Hemoglobin 10.1 L Lymphocytes # 1.3 Lymphocytes % 22.2 Mean Corpuscular Hemoglobin 28.9 L Mean Corpuscular Hemoglobin Concent 32.3 Mean Corpuscular Volume 89.7 Mean Platelet Volume 11.3 H Monocytes # 0.4 Monocytes % 7.0 Neutrophils # 4.0 Neutrophils % 67.1 Nucleated Red Blood Cells # 0.0 Nucleated Red Blood Cells % 0.0 Platelet Count 177 Potassium Level 4.0 Red Blood Count 3.49 L Red Cell Distribution Width 13.7 Sodium Level 142 White Blood Count 6.0 # Bedside Glucose 190 117 111 Test 01/01/17 06:26 01/01/17 07:23 Anion Gap 16 Blood Urea Nitrogen 27 H Calcium Level 8.8 Carbon Dioxide Level 31 Chloride Level 100 Creatinine 1.28 H Glucose Level 116 # Potassium Level 3.9 Sodium Level 143 Bedside Glucose 141 Medications Medications Current Medications Aspirin (Halfprin) 81 mg DAILY PO Last administered on 12/31/16 08:59; Admin Dose 81 MG; Start 12/29/16 at 09:00 Carvedilol (Coreg) 6.25 mg BID PO Last administered on 12/31/16 20:51; Admin Dose 6.25 MG; Start 12/28/16 at 21:00 Fenofibrate (Tricor) 145 mg DAILY PO Last administered on 12/31/16 08:59; Admin Dose 145 MG; Start 12/29/16 at 09:00 Linagliptin (Tradjenta) 5 mg DAILY PO Last administered on 12/31/16 08:59; Admin Dose 5 MG; Start 12/29/16 at 09:00 Pantoprazole (Protonix Tab) 40 mg DAILY@06 PO Last administered on 01/01/17 06 :23; Admin Dose 40 MG; Start 12/29/16 at 06:00 Enoxaparin Sodium (Lovenox) 40 mg DAILY SC Last administered on 12/31/16 09:01 ; Admin Dose 40 MG; Start 12/29/16 at 09:00 Miscellaneous Information 1 ea NOTE XX ; Start 12/28/16 at 19:00 Glucose (Glutose) 15 gm Q15M PRN PO DECREASED GLUCOSE; Start 12/28/16 at 19:00 Glucose (Glutose) 22.5 gm Q15M PRN PO DECREASED GLUCOSE; Start 12/28/16 at 19: 00 Dextrose (D50w Syringe) 25 ml Q15M PRN IV DECREASED GLUCOSE; Start 12/28/16 at 19:00 Dextrose (D50w Syringe) 50 ml Q15M PRN IV DECREASED GLUCOSE; Start 12/28/16 at 19:00 Glucagon (Glucagen) 1 mg Q15M PRN IM DECREASED GLUCOSE; Start 12/28/16 at 19:00 Glucose (Glutose) 15 gm Q15M PRN BUCCAL DECREASED GLUCOSE; Start 12/28/16 at 19 :00 Atorvastatin Calcium 40 mg 40 mg QHS PO Last administered on 12/31/16 20:51; Admin Dose 40 MG; Start 12/29/16 at 21:00 Vancomycin HCl/ Sodium Chloride (Vancocin/NS) 250 ml @ 83.333 mls/ hr Q24H IVPB ; Start 01/01/17 at 15:00 FRANCHESKA YARBROUGH MD Jan 01, 2017 08:53
[2017-01-01] MEDS: FENOFIBRATE 145 MG TAB PO SCH (09:16)
[2017-01-01] MEDS: metFORMIN 500 MG TAB PO SCH ×2 (09:16→17:31)
[2017-01-01] MEDS: LINAGLIPTIN 5 MG TABLET PO SCH (09:16)
[2017-01-01] MEDS: ASPIRIN (EC) 81 MG TAB PO SCH (09:16)
[2017-01-01] MEDS: ENOXAPARIN 40 MG/0.4 ML SYG SC SCH (09:20)
--- NOTE | 2017-01-01 11:36 | PN ---
Date/Time of Note Date/Time of Note DATE: 01/01/17 TIME: 11:29 Assessment/Plan VTE Prophylaxis VTE Prophylaxis Intervention: LMWH Lines/Catheters IV Catheter Type (from Nrs): Peripheral IV Urinary Cath still in place: No Assessment/Plan Assessment/Plan 1. Vertigo, likely peripheral, negative brain MRI, resolved, meclizine prn 2. Atrial fibrillation, paroxysmal, sinus now, follow up with cardiology 3. UTI, keflex 4. Left foot cellulitis, keflex, check uric acid 5. DM2 with fairly good control 6. Dyslipidemia 7. Acute renal failure r/o CKD 8. HTN, controlled 9. Hx of LE DVT 10. DVT prophylaxis: lovenox Subjective 24 Hr Interval Summary Free Text/Dictation less swelling on left foot Exam/Review of Systems Vital Signs Vitals Vital Signs Date Time Temp Pulse Resp B/P Pulse Ox O2 Delivery O2 Flow Rate FiO2 01/01/17 08:51 61 01/01/17 08:02 97.8 18 107/55 96 12/31/16 20:50 Nasal Cannula 2.0 Intake and Output 12/31/16 12/31/16 01/01/17 15:00 23:00 07:00 Intake Total 1100 ml Output Total 750 ml Balance 350 ml Exam Constitutional: alert, obese, oriented, well developed Psych: nl mood/affect, no complaints Head: atraumatic, normocephalic Eyes: EOMI, nl conjunctiva, nl lids ENMT: nl external ears & nose, nl lips & teeth, nl nasal mucosa & septum Neck: non-tender, supple Respiratory: clear to auscultation, normal air movement, No congested cough, No crackles/rales, No diminished breath sounds, No intercostal retraction, No labored breathing, No other, No respirations, No tactile fremitus, No wheezing Cardiovascular: nl pulses, regular rate and rhythm, No S3, No S4, No bruits, No diastolic murmur, No edema, No gallop, No irregular rhythm, No jugular venous distention (JVD), No murmurs/extra sounds, No other, No rub, No systolic murmur Gastrointestinal: nl liver, spleen, non-tender, soft, No ascites, No bowel sounds, No distended, No firm, No hepatomegaly, No mass , No other, No rebound or guarding, No splenomegaly, No surgical scars, No tender Musculoskeletal: nl extremities to inspection Extremities: normal pulses, other (left ankle and foot redness, swelling) Neurological: BEAUTY DIRECTOR II-XII intact, nl mental status, nl speech, nl strength Lymph: nl lymph nodes Results Result Diagram: 12/31/16 1010 01/01/17 0626 Results 24 hrs Laboratory Tests Test 12/31/16 11:50 12/31/16 17:24 12/31/16 20:50 01/01/17 06:26 Bedside Glucose 190 117 111 Anion Gap 16 Blood Urea Nitrogen 27 H Calcium Level 8.8 Carbon Dioxide Level 31 Chloride Level 100 Creatinine 1.28 H Glucose Level 116 # Potassium Level 3.9 Sodium Level 143 Test 01/01/17 07:23 Bedside Glucose 141 Medications Medications Current Medications Aspirin (Halfprin) 81 mg DAILY PO Last administered on 01/01/17 09:16; Admin Dose 81 MG; Start 12/29/16 at 09:00 Carvedilol (Coreg) 6.25 mg BID PO Last administered on 01/01/17 09:16; Admin Dose 6.25 MG; Start 12/28/16 at 21:00 Fenofibrate (Tricor) 145 mg DAILY PO Last administered on 01/01/17 09:16; Admin Dose 145 MG; Start 12/29/16 at 09:00 Linagliptin (Tradjenta) 5 mg DAILY PO Last administered on 01/01/17 09:16; Admin Dose 5 MG; Start 12/29/16 at 09:00 Pantoprazole (Protonix Tab) 40 mg DAILY@06 PO Last administered on 01/01/17 06 :23; Admin Dose 40 MG; Start 12/29/16 at 06:00 Enoxaparin Sodium (Lovenox) 40 mg DAILY SC Last administered on 01/01/17 09:20 ; Admin Dose 40 MG; Start 12/29/16 at 09:00 Miscellaneous Information 1 ea NOTE XX ; Start 12/28/16 at 19:00 Glucose (Glutose) 15 gm Q15M PRN PO DECREASED GLUCOSE; Start 12/28/16 at 19:00 Glucose (Glutose) 22.5 gm Q15M PRN PO DECREASED GLUCOSE; Start 12/28/16 at 19: 00 Dextrose (D50w Syringe) 25 ml Q15M PRN IV DECREASED GLUCOSE; Start 12/28/16 at 19:00 Dextrose (D50w Syringe) 50 ml Q15M PRN IV DECREASED GLUCOSE; Start 12/28/16 at 19:00 Glucagon (Glucagen) 1 mg Q15M PRN IM DECREASED GLUCOSE; Start 12/28/16 at 19:00 Glucose (Glutose) 15 gm Q15M PRN BUCCAL DECREASED GLUCOSE; Start 12/28/16 at 19 :00 Atorvastatin Calcium 40 mg 40 mg QHS PO Last administered on 12/31/16t 20:51; Admin Dose 40 MG; Start 12/29/16 at 21:00 Vancomycin HCl/ Sodium Chloride (Vancocin/NS) 250 ml @ 83.333 mls/ hr Q24H IVPB ; Start 01/01/17 at 15:00 KELSEY CLAUDIO MD Jan 01, 2017 11:36
[2017-01-01] MEDS ORDERED: CEPHALEXIN 500 MG CAP PO SCH (12:00)
[2017-01-01] MEDS ORDERED: VANCOMYCIN 1.5 GM in SOD CHLORIDE 0.9% 250 ML IVPB SCH ×2 (15:00→18:30)
[2017-01-01] MEDS ORDERED: VANCOMYCIN IV PER PHARMACY XX SCH (17:30)
--- NOTE | 2017-01-01 19:17 | CONS ---
DATE OF ADMISSION: 12/30/2016 DATE OF CONSULTATION: 01/01/2017 TYPE OF CONSULTATION: Infectious Disease. REASON FOR CONSULTATION: Antibiotic management. HISTORY OF PRESENT ILLNESS: Jeronimo Hercules is a 76-year-old female who complained of sudden ons et of vertigo on the morning of the . She complained of severe spinning of the room that induced nausea and vomiting. She had no headache or fever, no focal neurological complaints such as numbne ss and weakness. No history of atrial fibrillation. Her problems include: 1. Hypertension. 2. Hyperlipidemia. 3. Osteoarthritis. 4. History of lower extremity deep venous thrombosis. 5. Questionable chronic renal disease. 6. Adult-onset diabetes mellitus. 7. Obesity. 8. Hernia repair. 9. Cholecystectomy. Acutely, the patient comes in with new onset of dizziness. She also has leukocytosis, possibly reac tive. Her white count was 14.8, H and H 11.9 and 36.1, platelet count 204,000. BUN and creatinine 29/1.19. PAST MEDICAL HISTORY: Operations as outlined. PAST SURGICAL HISTORY: Status post hernia repair, status post cholecystectomy. FAMILY HISTORY: Noncontributory. SOCIAL HISTORY: She does not smoke, drink, or abuse drugs. ALLERGIES: NONE TO PENICILLIN, SULFA OR FOODS. MEDICATIONS: Per chart. REVIEW OF SYSTEMS: As per HPI. PHYSICAL EXAMINATION: GENERAL: The patient is a well-developed, well-nourished elderly female who is alert, responsive, i n no acute distress. VITAL SIGNS: Stable. She is afebrile. SKIN: Without generalized rash. HEENT: Within normal limits. NECK: Supple. LYMPH NODES: None palpable. CHEST: Decreased breath sounds at the bases. HEART: Irregular rhythm without murmur or gallop. ABDOMEN: Soft, nontender, without organosplenomegaly or masses. EXTREMITIES: Without cyanosis, clubbing, or edema. RECTAL AND GENITAL: Exams deferred. NEUROLOGICAL: No focal neurological abnormality. IMAGING STUDIES: CT scanning of the brain without contrast shows no intracranial hemorrhage or abno rmality. Early ischemic injury may be occult. The CT imaging and diffusion weighted MRI may be con sidered if clinically warranted. A DVT study was negative. An MRI was negative. MICROBIOLOGY: She had E. coli in her urine but less than 10,000 colony forming units. The patient was initially on vancomycin, now she is placed on Keflex 500 mg q.6 for the E. coli ____ _. E. coli is resistant to cefazolin. Presently she has vertigo, atrial fibrillation, she is thoug ht to have left foot cellulitis. ANCILLARY LABORATORY DATA: Her white count is down to 6.0. I am going to discontinue her Keflex. We will continue her on current therapy, aside from the Keflex. Dictated By: LIBERTAD AVILES MD, JD/GIA Conf#: [id number] DID#: [id number]
--- NOTE | 2017-01-01 20:06 | CONS ---
DATE OF ADMISSION: 12/30/2016 DATE OF CONSULTATION: 01/01/2017 ADDENDUM In evaluating Ms. Hercules, it seems that she has a significant cellulitis of left lower extremity. She was started on Keflex. I am going to stop the Keflex, place her on vancomycin, pharmacy to do se, and to elevate her leg on 3 pillows. Her BUN, creatinine 27 over 1.28. Dictated By: LIBERTAD AVILES MD, JD/GIA Conf#: [id number] DID#: [id number]
[2017-01-01] MEDS: ATORVASTATIN 40 MG TAB PO SCH (22:27)
[2017-01-02 06:07] LABS: POTASSIUM 3.9 mmol/L (3.5-5.1)
[2017-01-02 06:09] LABS: CREATININE 1.63 mg/dl (0.44-1.00)
[2017-01-02 06:10] LABS: CALCIUM 8.9 mg/dl (8.4-10.2)
[2017-01-02] MEDS: PANTOPRAZOLE (EC) 40 MG TAB PO SCH (06:22)
[2017-01-02] MEDS: FUROSEMIDE 20 MG INJ IV SCH ×2 (06:23→18:10)
[2017-01-02 08:14] VITALS: BP 117/56; RESP 20
[2017-01-02] MEDS: INSULIN ASPART [NOVOLOG] 3 ML PEN SC SCH ×3 (08:15→18:19)
[2017-01-02] MEDS: LINAGLIPTIN 5 MG TABLET PO SCH (08:27)
[2017-01-02] MEDS: FENOFIBRATE 145 MG TAB PO SCH (08:27)
[2017-01-02] MEDS: metFORMIN 500 MG TAB PO SCH ×2 (08:27→18:09)
[2017-01-02] MEDS: ASPIRIN (EC) 81 MG TAB PO SCH (08:27)
[2017-01-02] MEDS: ENOXAPARIN 40 MG/0.4 ML SYG SC SCH (08:30)
[2017-01-02] MEDS ORDERED: CEPH250S33 PO (12:23)
--- NOTE | 2017-01-02 12:36 | DS ---
Date/Time of Note Date/Time of Note DATE: 01/02/17 TIME: 12:24 Discharge Summary Admission/Discharge Info Admit Date/Time Dec 30, 2016 at 11:17 Discharge Date/Time Final Diagnosis 1. Vertigo, likely peripheral, negative brain MRI, resolved 2. Atrial fibrillation, paroxysmal, sinus now, on aspirin, follow up with cardiology outpatient 3. UTI, keflex 4. Left foot cellulitis, keflex, follow up with PCP 5. DM2 with fairly good control 6. Dyslipidemia, on treatement 7. Acute on chronic kidney disease, stage 3, follow up with PCP 8. HTN, controlled Patient Condition: Stable Consults Danilo Ward MD-cardiology Procedures [facility] ~CARDIOLOGY REPORT~ Patient: CHIDI FRANCISCO : 1940 Age: 76 Sex: F Unit #: [id number] Room/Bed: 5553-A Location: [address] MD: JHOAN BARRETT Signed Echocardiogram Report Patient Name: CHIDI FRANCISCO Gender: Female Date: 1940 Study Date: 29-Dec-2016 Sales Associate: Jorge Reis RDCS Location: [facility] Ref. Physician: JHOAN BARRETT Quality: Technically Difficult Study Procedures: Transthoracic echocardiogram with complete 2D, M-Mode, and doppler examination. Indications: Atrial Fibrillation RVR. 2D/M Mode Doppler Measurement Value Normal Ranges Measurement Value Normal Ranges LVIDd 2D 5.4 3.5 - 5.6 cm AV Peak Paolo 1.7 m/sec LVIDs 2D 3.1 2.1 - 4.1 cm AV Peak PG 11.6 mmHg LVPWd 2D 1.2 0.6 - 1.1 cm LVOT Peak Paolo 1.3 m/sec IVSd 2D 1.1 0.6 - 1.1 cm LVOT Peak PG 7.3 mmHg AoR Diam 2D 3.0 2.0 - 3.7 cm MV E Peak Paolo 0.7 m/sec EDV 2D 139.3 cm3 MV A Peak Paolo 0.9 m/sec ESV 2D 30.9 cm3 MV E/A 0.8 LA Dimen 2D 3.7 2.3 - 4.0 cm MV Decel Time 140 msec MV Decel Bell 5 MV E/A 0.8 TR Peak Paolo 2.2 m/sec TR Peak PG 18.6 mmHg RVSP 22.0 mmHg Findings Left Ventricle: Normal left ventricular systolic function. Normal left ventricular cavity size. Normal left ventricular wall thickness. Ejection fraction is visually estimated at 65 %. Tissue Doppler/Mitral Doppler indices are consistent with impaired relaxation (Stage I diastolic dysfunction). Right Ventricle: Normal right ventricular size. Normal right ventricular systolic function. Left Atrium: The left atrium is normal in size. Right Atrium: The right atrium is normal in size. Mitral Valve: Mitral valve leaflets appear mildly thickened. Mild mitral annular calcification. Trace mitral regurgitation. Aortic Valve: No hemodynamically significant aortic stenosis by doppler. Aortic cusps appear mildly calcified. Trace to mild aortic valve regurgitation. Tricuspid Valve: Normal appearance of the tricuspid valve. Estimated peak PA systolic pressure 22 mmHg. There is trace tricuspid regurgitation. Pulmonic Valve: Normal pulmonic valve appearance. Pericardium: Normal pericardium with no significant pericardial effusion. Aorta: Normal aortic root. IVC: Normal size and normal respiratory collapse consistent with normal right atrial pressure. Conclusions 1. Normal left ventricular systolic function. Normal left ventricular cavity size. Normal left ventricular wall thickness. Ejection fraction is visually estimated at 65 %. Tissue Doppler/Mitral Doppler indices are consistent with impaired relaxation (Stage I diastolic dysfunction). 2. Mitral valve leaflets appear mildly thickened. Mild mitral annular calcification. Trace mitral regurgitation. 3. No hemodynamically significant aortic stenosis by doppler. Aortic cusps appear mildly calcified. Trace to mild aortic valve regurgitation. 4. Normal appearance of the tricuspid valve. Estimated peak PA systolic pressure 22 mmHg. There is trace tricuspid regurgitation. Electronically Signed By: Danilo Ward 29-Dec-2016 11:00:53 -0800 Patient Name: CHIDI FRANCISCO Study Date: 29-Dec-[id number] Hospital Course This is a 76-year-old female complains of sudden onset of vertigo this morning. She says that when she turns her head she gets severe spinning of the room that induces nausea vomiting. She has no headache no fever no focal neurological complaints such as numbness or weakness speech change or visual change. MRI brain is negative. Patient has vertigo that likely peripheral, and it is resolved. No specific treatment needed at this point. Meclizine prn if recurs. Patient had atrial fibrillation on admission that soon converted to sinus rhythm. We will continue her on aspirin and have her follow up with iuss acoustic analyst for possible anticoagulant. No chest pain shortness of breath no abdominal pain. Troponin was mildly elevated up to 0.173. Patient has acute on chronic renal failure. Cardiology does not recommend further cardiac work up by now. Patient developed right foot/ankle redness and swelling. She is treated with vancomycin that significantly improved the symptoms. She will continue on keflek and instructed to keep right foot elevated. The BUN/Cr are 31/1.63 on 01/02/2017. Follow up with PCP. Home Meds Active Scripts Cephalexin* (Cephalexin* Susp) 250 Mg/5 Ml Susp.recon, 500 MG PO Q6 for 7 Days, #1 BOTTLE Prov:KELSEY CLAUDIO MD 01/02/17 Reported Medications Aspirin* (Aspirin* (EC)) 81 Mg Tablet.dr, 81 MG PO DAILY, TAB 04/03/15 Glimepiride* (Amaryl*) 4 Mg Tablet, 4 MG PO DAILY 02/22/12 Sitagliptin Phos-Metformin Hcl (Janumet) 1 Tab Tablet, 50 MG PO BID 02/22/12 Olmesartan/Hydrochlorothiazide (Benicar Hct 40-12.5 Mg Tablet) 1 Udtab Tablet, 1 TAB PO DAILY 02/22/12 Carvedilol* (Carvedilol*) 6.25 Mg Tablet, 6.25 MG PO BID 02/22/12 Fenofibric Acid (Choline) (Trilipix) 135 Mg Capsule.dr, 135 MG PO DAILY 02/22/12 Atorvastatin (Lipitor) 40 Mg Tablet, 40 MG PO DAILY 02/22/12 Follow-up Plan PCP 1 week Cardiology 1-2 weeks Pending Labs Laboratory Tests Test 01/01/17 17:34 01/01/17 22:21 01/02/17 05:05 01/02/17 08:01 Bedside Glucose 96mg/dL (70-220) 136mg/dL (70-220) 112mg/dL (70-220) Anion Gap 15 (8-16) Blood Urea Nitrogen 31mg/dl (7-20) Calcium Level 8.9mg/dl (8.4-10.2) Carbon Dioxide Level 33mmol/L (21-31) Chloride Level 98mmol/L (97-110) Creatinine 1.63mg/dl (0.44-1.00) Glucose Level 117mg/dl (70-220) Potassium Level 3.9mmol/L (3.5-5.1) Sodium Level 142mmol/L (135-144) Test 01/02/17 11:49 Bedside Glucose 155mg/dL (70-220) KELSEY CLAUDIO MD Jan 02, 2017 12:35
--- NOTE | 2017-01-02 13:05 | CONS ---
Date/Time of Note Date/Time of Note DATE: 01/02/17 TIME: 13:04 Assessment/Plan Assessment/Plan Additional Assessment/Plan 1. Congestive heart failure: diastolic dysfunction with preserved ejection fraction as a diagnosis. Continue to monitor now and follow expectantly. Stable - but borderline Bp, con't gentler diuresis. BETTER NOW. Good urine output. IMPROVED. Dispo in place. 2. Reported history for atrial fibrillation, paroxysmal. I think it would be reasonable for patient to be on global anticoagulation unless there is a contraindication. For now, we will treat with Lovenox and follow expectantly.SINUS NOW (off tele). 3. History of DVT/PE anticoagulation would be warranted as well. 4. History of congestive heart failure. The patient has significant degree of fluid overload. Continue diuresis now. 5. Acute renal failure. Creatinine elevated. Continue to avoid nephrotoxic medications. Cr stable at 1.4 - responded well to diuresis. 6. Coronary artery disease, no chest pain reported. No CP now. NO INTERVENTION PLANNED. Consultation Date/Type/Reason Admit Date/Time Dec 30, 2016 at 11:17 24 HR Interval Summary Free Text/Dictation NO acute change. BP well rx - improved fluid s taus. Con't Rx. ROS: No fever, no chills, no nausea, no vomiting, no diarrhea/constipation No recent weight changes No chest pain, no PND, no orthopnea No dizziness, blurred vision No thirst, no heat or cold intolerance Exam/Review of Systems Vital Signs Vitals Vital Signs Date Time Temp Pulse Resp B/P Pulse Ox O2 Delivery O2 Flow Rate FiO2 01/02/17 08:30 Nasal Cannula 2 01/02/17 08:14 98.0 68 20 117/56 98 Intake and Output 01/01/17 01/01/17 01/02/17 15:00 23:00 07:00 Intake Total 120 ml 520 ml Balance 120 ml 520 ml Exam General: WN/WD/NAD, AOx 2-3 HEENT: Unicetric/atraumatic/EOMI (follows commands) NECK: JVD elevated, no thyromegaly Lymph: no lymphadenopathy HEART: regular with no S3, II/ systolic murmur at apex LUNGS: Coarse sounds ABD: soft, NT, ND, +BS : Intact Neuro: non focal SKIN: chronic changes EXT: trace edema Results Result Diagram: 12/31/16 1010 01/02/17 0505 Results 24 hrs Laboratory Tests Test 01/01/17 17:34 01/01/17 22:21 01/02/17 05:05 01/02/17 08:01 Bedside Glucose 96 136 112 Anion Gap 15 Blood Urea Nitrogen 31 H Calcium Level 8.9 Carbon Dioxide Level 33 H Chloride Level 98 Creatinine 1.63 H Glucose Level 117 Potassium Level 3.9 Sodium Level 142 Test 01/02/17 11:49 Bedside Glucose 155 Medications Medications Current Medications Aspirin (Halfprin) 81 mg DAILY PO Last administered on 01/02/17 08:27; Admin Dose 81 MG; Start 12/29/16 at 09:00 Carvedilol (Coreg) 6.25 mg BID PO Last administered on 01/02/17 08:28; Admin Dose 6.25 MG; Start 12/28/16 at 21:00 Fenofibrate (Tricor) 145 mg DAILY PO Last administered on 01/02/17 08:27; Admin Dose 145 MG; Start 12/29/16 at 09:00 Linagliptin (Tradjenta) 5 mg DAILY PO Last administered on 01/02/17 08:27; Admin Dose 5 MG; Start 12/29/16 at 09:00 Pantoprazole (Protonix Tab) 40 mg DAILY@06 PO Last administered on 01/02/17 06 :22; Admin Dose 40 MG; Start 12/29/16 at 06:00 Enoxaparin Sodium (Lovenox) 40 mg DAILY SC Last administered on 01/02/17 08:30 ; Admin Dose 40 MG; Start 12/29/16 at 09:00 Miscellaneous Information 1 ea NOTE XX ; Start 12/28/16 at 19:00 Glucose (Glutose) 15 gm Q15M PRN PO DECREASED GLUCOSE; Start 12/28/16 at 19:00 Glucose (Glutose) 22.5 gm Q15M PRN PO DECREASED GLUCOSE; Start 12/28/16 at 19: 00 Dextrose (D50w Syringe) 25 ml Q15M PRN IV DECREASED GLUCOSE; Start 12/28/16 at 19:00 Dextrose (D50w Syringe) 50 ml Q15M PRN IV DECREASED GLUCOSE; Start 12/28/16 at 19:00 Glucagon (Glucagen) 1 mg Q15M PRN IM DECREASED GLUCOSE; Start 12/28/16 at 19:00 Glucose (Glutose) 15 gm Q15M PRN BUCCAL DECREASED GLUCOSE; Start 12/28/16 at 19 :00 Atorvastatin Calcium 40 mg 40 mg QHS PO Last administered on 01/01/17 22:27; Admin Dose 40 MG; Start 12/29/16 at 21:00 Vancomycin HCl/ Sodium Chloride (Vancocin/NS) 250 ml @ 83.333 mls/ hr Q24H IVPB Last administered on 01/01/17 18:45; Admin Dose 83.333 MLS/HR; Start at 18:30 FRANCHESKA YARBROUGH MD Jan 02, 2017 13:05
--- NOTE | 2017-01-02 17:44 | RADRPT ---
Vent Rate: 88 bpm RR Interval: 0 msec IA Interval: 278 msec QRS Duration: 110 msec QT Interval: 392 msec QTC Interval: 474 msec P-R-T [place]: 89 - -58 - 75 degrees Sinus rhythm with 1st degree AV block Left anterior fascicular block Possible Anterolateral infarct , age undetermined Abnormal ECG Electronically Signed By: Orville Shaver [id number]
== END 2017-01-02 18:58 | disposition home or self-care (01) | DRG 291 ==
LOC: E/R 12:17 → MS4 15:59 → UNDOADMOB 15:59 → INTOOBSV 15:59 → MS4 15:59 → OBSVTOIN 12-30 11:17 → MS2 01-01 17:00
PROVIDERS: ADMIT Family Medicine; ATTEND Family Medicine
DX: I13.0 Hypertensive heart and chronic kidney disease with heart failure and stage 1 through stage 4 chronic kidney disease, or unspecified chronic kidney disease (principal); I50.33 Acute on chronic diastolic (congestive) heart failure; N17.9 Acute kidney failure, unspecified; E11.22 Type 2 diabetes mellitus with diabetic chronic kidney disease; E11.69 Type 2 diabetes mellitus with other specified complication; L03.116 Cellulitis of left lower limb; Z68.41 Body mass index [BMI] 40.0-44.9, adult; N30.00 Acute cystitis without hematuria; I48.0 Paroxysmal atrial fibrillation; B96.20 Unspecified Escherichia coli [E. coli] as the cause of diseases classified elsewhere; H81.399 Other peripheral vertigo, unspecified ear; H83.09 Labyrinthitis, unspecified ear; E78.5 Hyperlipidemia, unspecified; N18.3 Chronic kidney disease, stage 3 (moderate); E66.01 Morbid (severe) obesity due to excess calories; I25.10 Atherosclerotic heart disease of native coronary artery without angina pectoris; Z86.718 Personal history of other venous thrombosis and embolism; Z90.49 Acquired absence of other specified parts of digestive tract; Z79.82 Long term (current) use of aspirin; Z79.84 Long term (current) use of oral hypoglycemic drugs; Z86.73 Personal history of transient ischemic attack (TIA), and cerebral infarction without residual deficits
CPT/HCPCS: 70450; 70551; 71010; 80048; 80053; 80061; 81001; 81003; 82550; 82553; 82962; 83036; 83735; 83880; 84100; 84439; 84443; 84484; 85025; 87086; 93005; 93306; 93970; 93971; 96374; 97161; G0378; J1940; J1650; J1815; J2405; J3370; J7030; J7040; J7050

== ENCOUNTER 2017-06-21 17:51 | Emergency (ER) | END 2017-06-21 21:48 | disposition home or self-care (01) | DX: K44.9 Diaphragmatic hernia without obstruction or gangrene (principal); R11.2 Nausea with vomiting, unspecified; Z79.4 Long term (current) use of insulin; Z79.82 Long term (current) use of aspirin | CPT/HCPCS: 36415; 74176; 80053; 81003; 83690; 84484; 85025; 85610; 85730; 93005; 96374; 96375; 99285; J2405; J7030 ==